=== PATIENT | male | born 1940 | race Caucasian/White ===

== ENCOUNTER 2019-10-11 09:24 | Outpatient (CLI) | payer MEDICARE, OTHER, SELFPAY ==
[2019-10-11 10:33] LABS: Alanine Aminotransferase 26 U/L (4-50); Albumin Level 4.4 g/dL (3.5-5.1); Alkaline Phosphatase 55 U/L (38-126); Aspartate Amino Transferase 36 U/L (17-59); Bilirubin,Total 0.5 mg/dL (0.2-1.3); Blood Urea Nitrogen 18 mg/dL (9-20); Calcium 9.4 mg/dL (8.4-10.2); Carbon Dioxide 32 mmol/L (22-30); Chloride 103 mmol/L (98-107); Cholesterol 121 mg/dL (0-200); Estimated Glomerular Filt Rate > 60; Glucose 91 mg/dL (75-110); HDL Direct 57 mg/dL; Potassium 4.9 mmol/L (3.4-5.0); Sodium 142 mmol/L (137-145); Triglycerides 53 mg/dL (<150)
[2019-10-11 10:45] LABS: LDL Cholesterol Direct 53 mg/dL
== END 2019-10-11 09:25 | disposition home or self-care (01) ==
PROVIDERS: PCP Emergency Medicine; Visit Provider Internal Medicine Cardiovascular Disease
DX: I25.10 Atherosclerotic heart disease of native coronary artery without angina pectoris (principal); E78.00 Pure hypercholesterolemia, unspecified
CPT/HCPCS: 36415; 80053; 80061

== ENCOUNTER 2020-08-21 12:22 | Outpatient (CLI) | payer MEDICARE, OTHER, SELFPAY ==
--- NOTE | ~2020-08-21 | US_ITS ---
EXAMINATION:US venous doppler LE LT INDICATION:History of DVT. TECHNIQUE: Multiple grayscale, color flow and Doppler images of the left lower extremity deep venous systems were obtained and reviewed. COMPARISON:No prior studies for comparison. FINDINGS: The common femoral, superficial femoral and popliteal veins demonstrate normal respiratory variation, augmentation and compressibility. Color flow is also seen within the posterior tibial, pe roneal, greater saphenous and profunda veins. IMPRESSION: 1: No lower extremity deep venous thrombosis. Reviewed, dictated and finalized at location A. EL DRIER OPERATOR
== END 2020-08-21 12:23 | disposition home or self-care (01) ==
PROVIDERS: PCP Emergency Medicine; Visit Provider Emergency Medicine
DX: I82.402 Acute embolism and thrombosis of unspecified deep veins of left lower extremity (principal)
CPT/HCPCS: 93971

== ENCOUNTER 2021-10-29 11:45 | Emergency (ER) | payer MEDICARE, OTHER, SELFPAY ==
[2021-10-29] VITALS (7 sets, daily range): BP systolic 133–173; BP diastolic 70–99; PULSE 62–68; RESP 16–23; TEMP 36.6–37; O2SAT 97–100
--- NOTE | ~2021-10-29 | CT_ITS ---
. EXAMINATION: CTA brain carotid DATE: 10/29/2021 13:13 INDICATION: Dizziness. TECHNIQUE: Computed tomographic angiography (CTA) of the head was performed without and with 100 mL O mnipaque-350 intravenous contrast. CTA of the neck was performed with intravenous contrast. Automated exposure control and iterative reconstruction technique were employed. The dose-length product was 1 906.90 mGy-cm. Maximum intensity projection and volume rendered 3D-reconstructions were created by francisca perez technologist on a separate workstation. COMPARISON: None. FINDINGS: HEAD CTA: There is no intracranial hemorrhage, acute infarction, or abnormal intracranial mass lesion . The ventricles are normal in size. The orbits are normal. There is mild mucosal thickening in the p aranasal sinuses. The mastoid air cells are normal. Right vertebral artery is dominant. There is no s ignificant stenosis of basilar artery or the posterior cerebral arteries. There is no significant berry nosis of intracranial internal carotid arteries or anterior or middle cerebral arteries. Anterior com municating artery is normal. The posterior communicating arteries are normal. There is no aneurysm. NECK CTA: There are no pathologically enlarged lymph nodes. There is a 1.2 cm nodule in left thyroid lobe, likely not clinically significant. 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 There are changes of coronary artery bypass grafting. There is no significant stenosis of the vertebral art eries. There is mild plaque in the proximal internal carotid arteries. There is 0% stenosis of the pr oximal right internal carotid artery relative to normal distal artery lumen diameter (NASCET criteria ). There is 0% stenosis of the proximal left internal carotid artery relative to normal distal artery lumen diameter. There is severe cervical spondylosis. IMPRESSION: 1. Normal brain. No aneurysm or significant intracranial large old stenosis. 2. 0% stenosis of the proximal internal carotid arteries relative to normal distal artery lumen diame ters (NASCET criteria). Reviewed, dictated and finalized at location A. IMPRESSION: 1. Normal brain. No aneurysm or significant intracranial large old stenosis. 2. 0% stenosis of the proximal internal carotid arteries relative to normal dis josselyn artery lumen diameters (NASCET criteria).
--- NOTE | 2021-10-29 11:55 | ECG_ITS ---
Measurements Intervals [place] Rate: 63 P: 64 AK: 135 QRS: -20 QRSD: 90 T: 82 QT: 372 QTc: 382 Interpretive Statements SINUS RHYTHM NONSPECIFIC T-WAVE ABNORMALITY NO PREVIOUS ECG AVAILABLE FOR COMPARISON Electronically Signed On 10-29-2021 14:31:19 CDT by Mc Rosales M.D.
[2021-10-29 12:03] LABS: Glucose Point of Care 92 mg/dl (65-105)
[2021-10-29 12:18] LABS: Basophils Absolute Auto 0.1 K/mm3 (0.0-0.1); Basophils Percent Auto 1.2 % (0.2-1.2); Eosinophils Absolute Auto 0.2 K/mm3 (0-0.3); Eosinophils Percent Auto 2.7 % (0-4.4); Hematocrit 48.2 % (42.0-52.0); Hemoglobin 15.8 g/dL (14.0-18.0); Immature Granulocyte Absolute 0.01 K/mm3 (0.00-0.031); Immature Granulocyte Percent A 0.2 % (0-0.5); Lymphocytes Absolute Auto 0.86 K/mm3 (0.9-3.2); Lymphocytes Percent Auto 14.7 % (18.3-44.2); Mean Corpuscular HGB Conc 32.8 g/dl (32-36); Mean Corpuscular Hemoglobin 30.3 pg (26-34); Mean Corpuscular Volume 92.3 fl (80-100); Mean Platelet Volume 10.3 fl (7.4-10.4); Monocytes Absolute Auto 0.6 K/mm3 (0.1-0.6); Monocytes Percent Auto 10.1 % (2.6-8.5); Neutrophils Absolute Auto 4.2 K/mm3 (1.3-6.7); Neutrophils Percent Auto 71.1 % (45.5-73.1); Platelet Count Result 195 k/mm3 (150-375); Red Blood Count 5.22 M/mm3 (4.6-6.20); Red Cell Distribution Width 12.7 % (11.5-14.5); White Blood Count 5.9 K/mm3 (4.5-10.0)
[2021-10-29 12:30] LABS: Alanine Aminotransferase 24 U/L (4-50); Albumin Level 4.9 g/dL (3.5-5.1); Alkaline Phosphatase 72 U/L (38-126); Anion Gap 8 mmol/L (8-16); Aspartate Amino Transferase 38 U/L (17-59); Blood Urea Nitrogen 22 mg/dL (9-20); Calcium 9.1 mg/dL (8.4-10.2); Carbon Dioxide 26 mmol/L (22-30); Chloride 107 mmol/L (98-107); Estimated CRCL calculation 64 ml/min; Estimated Glomerular Filt Rate > 60; Glucose 88 mg/dL (65-110); Potassium 4.9 mmol/L (3.4-5.0); Sodium 141 mmol/L (137-145)
--- NOTE | 2021-10-29 14:03 | ED.DIZZY ---
HPI - Dizziness General Chief Complaint: Dizziness Stated Complaint: hypertension Time Seen by Provider: 10/29/21 11:56 Source: patient and RN notes reviewed Mode of arrival: ambulatory Limitations: no limitations History of Present Illness HPI Narrative: This is a 81 year old male with history of hyperlipidemia who presents for evaluation of intermittent dizziness. Patient state he has noticed some dizziness over the past 5 days. He reports brief episodes when he stands up initially, and then he is asymptomatic most of the day. He walks long distances daily and he states he is still able to make these walks. He has chronic left leg weakness from a bulging lumbar disc. He states his strength is actually improving in his leg. He denies any other deficits. He denies headache, nausea, vomiting tinnitis, blurred vision or diplopia. He was evaluated by his PCP today and he was referred to ER. Patient reports intermittent left neck pain with movement that has been present for several months. Related Data Home Medications Medication Instructions Recorded Confirmed atorvastatin 40 mg tablet 40 mg PO DAILY 06/20/21 09/17/21 aspirin 81 mg tablet,delayed 81 mg PO DAILY 09/17/21 09/17/21 release cholecalciferol (vitamin D3) 50 50 mcg PO DAILY 09/17/21 09/17/21 mcg (2,000 unit) capsule coenzyme Q10 30 mg capsule 30 mg PO DAILY 09/17/21 09/17/21 omeprazole 20 mg capsule,delayed 20 mg PO DAILY 09/17/21 09/17/21 release Allergies Allergy/AdvReac Type Severity Reaction Status Date / Time metronidazole Allergy Severe GI Verified 09/17/21 13:43 DISTRESS, DEHYRATION azithromycin Allergy Unknown Unknown Verified 09/17/21 13:43 Review of Systems Review of Systems: All systems reviewed & are unremarkable except as noted in HPI and below Constitutional: Constitutional: Denies chills and Denies fever(s) Eyes: Eyes: Denies photophobia ENT: Denies epistaxis and Denies sore throat Cardiovascular: Cardiovascular: Denies chest pain Respiratory: Respiratory: Denies cough and Denies dyspnea Gastrointestinal: Gastrointestinal: Denies abdominal pain, Denies nausea and Denies vomiting Neurologic: Denies headache(s), Denies focal weakness and Denies numbness PMFSH Past Medical History Medical History (Updated 10/29/21 @ 16:03 by Leslie Najera MD) Arthritis GERD (gastroesophageal reflux disease) Heart disease Surgical History Surgical History H/O heart bypass surgery October 2014 H/O prostatectomy Sep 2011 History of cholecystectomy 1992 History of lumbar laminectomy May 2020 Family History Family History Other Family history of congestive heart failure Family history of coronary artery disease Social History Social History Smoking status: Never smoker Alcohol intake: never Additional 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 HEAD: Normocephalic, atraumatic EYES: PERRLA and EOMI, conjunctiva clear without discharge EARS: TM's clear bilaterally without erythema or dullness NOSE: Nares clear, no rhinorrhea or epistaxis THROAT:Mucous membranes moist, Oropharynx normal without erythema, exudate, peritonsillar swelling or fluctuance NECK: Supple, without lymphadenopathy or mass RESPIRATORY: No respiratory distress, Airway patent, Respirations non-labored, Clear to auscultation without rales, rhonchi or wheeze HEART: Regular rate and rhythm. No murmur heard. Normal peripheral pulses. ABDOMEN: Soft, nontender, nondistended, normal active bowel sounds. No masses. No rebound or guarding, No organomegaly. EXTREMITIES: No edema, normal strength with full range
== END 2021-10-29 16:32 | disposition home or self-care (01) ==
PROVIDERS: Emergency Provider General Practice; PCP Internal Medicine
DX: R42 Dizziness and giddiness (principal); R03.0 Elevated blood-pressure reading, without diagnosis of hypertension; I51.9 Heart disease, unspecified; M19.90 Unspecified osteoarthritis, unspecified site; K21.9 Gastro-esophageal reflux disease without esophagitis; Z90.79 Acquired absence of other genital organ(s); Z79.82 Long term (current) use of aspirin; R94.31 Abnormal electrocardiogram [ECG] [EKG]
CPT/HCPCS: 36415; 70496; 70498; 80053; 82948; 85025; 93005; 99284; Q9967

== ENCOUNTER 2022-07-03 08:37 | Outpatient (CLI) | payer MEDICARE, OTHER, SELFPAY ==
[2022-07-03 09:00] LABS: Basophils Absolute Auto 0.1 K/mm3 (0.0-0.1); Basophils Percent Auto 1.3 % (0.2-1.2); Eosinophils Absolute Auto 0.5 K/mm3 (0-0.3); Eosinophils Percent Auto 11.3 % (0-4.4); Hematocrit 46.3 % (42.0-52.0); Immature Granulocyte Absolute 0.01 K/mm3 (0.00-0.031); Immature Granulocyte Percent A 0.2 % (0-0.5); Lymphocytes Absolute Auto 1.12 K/mm3 (0.9-3.2); Lymphocytes Percent Auto 23.5 % (18.3-44.2); Mean Corpuscular HGB Conc 32.4 g/dl (32-36); Mean Corpuscular Volume 92.6 fl (80-100); Mean Platelet Volume 10.3 fl (7.4-10.4); Monocytes Absolute Auto 0.5 K/mm3 (0.1-0.6); Monocytes Percent Auto 10.3 % (2.6-8.5); Neutrophils Absolute Auto 2.5 K/mm3 (1.3-6.7); Neutrophils Percent Auto 53.4 % (45.5-73.1); Platelet Count Result 197 k/mm3 (150-375); Red Cell Distribution Width 13.2 % (11.5-14.5); White Blood Count 4.8 K/mm3 (4.5-10.0)
[2022-07-03 09:11] LABS: Alanine Aminotransferase 23 U/L (6-50); Albumin Level 4.5 g/dL (3.5-5.1); Alkaline Phosphatase 52 U/L (38-126); Anion Gap 7 mmol/L (8-16); Aspartate Amino Transferase 31 U/L (17-59); Bilirubin,Total 0.7 mg/dL (0.2-1.3); Blood Urea Nitrogen 20 mg/dL (9-20); Calcium 9.1 mg/dL (8.4-10.2); Carbon Dioxide 29 mmol/L (22-30); Chloride 106 mmol/L (98-107); Cholesterol 129 mg/dL (0-200); Estimated Glomerular Filt Rate > 60; Glucose 99 mg/dL (65-110); HDL Direct 56 mg/dL; Potassium 4.6 mmol/L (3.4-5.0); Sodium 142 mmol/L (137-145); Triglycerides 49 mg/dL (<150)
[2022-07-03 09:22] LABS: LDL Cholesterol Direct 54 mg/dL
[2022-07-03 09:31] LABS: Vitamin D 25 Hydroxy 53.4 ng/mL
[2022-07-03 09:39] LABS: Prostate Specific Antigen < 0.1 ng/mL (< OR = 4.0)
== END 2022-07-03 08:38 | disposition home or self-care (01) ==
PROVIDERS: PCP Internal Medicine; Visit Provider Internal Medicine
DX: E78.00 Pure hypercholesterolemia, unspecified (principal); E55.9 Vitamin D deficiency, unspecified; I10 Essential (primary) hypertension; Z85.46 Personal history of malignant neoplasm of prostate
CPT/HCPCS: 36415; 80053; 80061; 82306; 84153; 84443; 85025

== ENCOUNTER 2022-10-23 10:10 | Outpatient (CLI) | payer MEDICARE, OTHER, SELFPAY ==
[2022-10-23 11:22] LABS: Basophils Absolute Auto 0.1 K/mm3 (0.0-0.1); Basophils Percent Auto 1.5 % (0.2-1.2); Eosinophils Absolute Auto 0.5 K/mm3 (0-0.3); Eosinophils Percent Auto 10.3 % (0-4.4); Hematocrit 46.4 % (42.0-52.0); Hemoglobin 15.1 g/dL (14.0-18.0); Immature Granulocyte Absolute 0.01 K/mm3 (0.00-0.031); Immature Granulocyte Percent A 0.2 % (0-0.5); Lymphocytes Absolute Auto 1.02 K/mm3 (0.9-3.2); Lymphocytes Percent Auto 21.5 % (18.3-44.2); Mean Corpuscular HGB Conc 32.5 g/dl (32-36); Mean Corpuscular Hemoglobin 29.8 pg (26-34); Mean Corpuscular Volume 91.7 fl (80-100); Mean Platelet Volume 10.4 fl (7.4-10.4); Monocytes Absolute Auto 0.5 K/mm3 (0.1-0.6); Monocytes Percent Auto 11.2 % (2.6-8.5); Neutrophils Absolute Auto 2.6 K/mm3 (1.3-6.7); Neutrophils Percent Auto 55.3 % (45.5-73.1); Platelet Count Result 202 k/mm3 (150-375); Red Blood Count 5.06 M/mm3 (4.6-6.20); Red Cell Distribution Width 12.7 % (11.5-14.5); White Blood Count 4.8 K/mm3 (4.5-10.0)
[2022-10-23 11:34] LABS: Cholesterol 139 mg/dL (0-200); HDL Direct 50 mg/dL; Triglycerides 86 mg/dL (<150)
[2022-10-23 11:46] LABS: LDL Cholesterol Direct 61 mg/dL
[2022-10-23 12:04] LABS: Prostate Specific Antigen < 0.1 ng/mL (< OR = 4.0)
[2022-10-23 12:40] LABS: Vitamin D 25 Hydroxy 52.2 ng/mL
== END 2022-10-23 10:11 | disposition home or self-care (01) ==
LOC: ANHLAB 10:13
PROVIDERS: PCP Internal Medicine; Visit Provider Internal Medicine
DX: R10.9 Unspecified abdominal pain (principal); E78.00 Pure hypercholesterolemia, unspecified; E55.9 Vitamin D deficiency, unspecified; I10 Essential (primary) hypertension; Z85.46 Personal history of malignant neoplasm of prostate
CPT/HCPCS: 36415; 80061; 82306; 84153; 84443; 85025

== ENCOUNTER 2023-04-22 13:20 | Outpatient (CLI) | payer MEDICARE, OTHER, SELFPAY ==
[2023-04-25 11:04] LABS: Immunoglobulin A 207 mg/dL (70-320); TTG IGA AB <1.0 U/mL (<15.0)
== END 2023-04-22 13:21 | disposition home or self-care (01) ==
LOC: ANHLAB 13:23
PROVIDERS: PCP Internal Medicine; Visit Provider Internal Medicine Gastroenterology
DX: R63.4 Abnormal weight loss (principal); Z83.79 Family history of other diseases of the digestive system
CPT/HCPCS: 36415; 82784; 86364

== ENCOUNTER 2023-11-17 10:52 | Outpatient (CLI) | payer MEDICARE, OTHER, SELFPAY ==
--- NOTE | ~2023-11-17 | XR_ITS ---
Clinical Indication: Dyspnea PA and lateral views of the chest: Comparison: None Findings: The lungs are clear, aside from calcified granuloma, without evidence of focal consolidatio n or pleural effusion. Cardiomediastinal silhouette is unremarkable, status post probable CABG. Bone s and soft tissues are unremarkable. Impression: No significant pulmonary abnormality seen. Status post CABG. Reviewed, dictated and finalized at location . Impression: No significant pulmonary abnormality seen. Status post CABG.
== END 2023-11-17 10:53 | disposition home or self-care (01) ==
PROVIDERS: PCP Internal Medicine; Visit Provider Internal Medicine
DX: R06.00 Dyspnea, unspecified (principal); Z95.1 Presence of aortocoronary bypass graft
CPT/HCPCS: 71046

== ENCOUNTER 2024-01-06 00:36 | Day surgery (SDC) | payer MEDICARE, OTHER, SELFPAY ==
[2023-12-22 11:59] VITALS: BMI 22.0
[2024-01-06 09:40] VITALS: BP 148/71; PULSE 67; RESP 20; TEMP 36.1; O2SAT 100; BMI 22.3
[2024-01-06] MEDS: LACTATED RINGERS 1,000 ML 150 ML IV CONT (09:43)
--- NOTE | 2024-01-06 10:37 | SUR.PREOP ---
pt and spouse made aware of delay in schedule due to inpatient procedure. voiced understanding.
--- NOTE | 2024-01-06 11:14 | WPDANESEPPF ---
Anes - Initial Pre Proc Eval Procedure: Operation Date: 01/06/24 11:00 Proposed Procedures p Colonoscopy - Kenn Chu MD Date/Time: 01/06/24 11:14 Surgeon: Kenn Chu MD Pre Op Diagnosis: hx. colon polyps Patient Data Age: 83 Gender: M Height: 1.65 m Weight: 60.8 kg Last Vital Signs Temp 97.0 F L 01/06/24 09:40 Pulse 67 01/06/24 09:40 Resp 20 01/06/24 09:40 BP 148/71 H 01/06/24 09:40 Pulse Ox 100 01/06/24 09:40 O2 Del Method Room Air 01/06/24 09:40 Allergies Allergy/AdvReac Type Severity Reaction Status Date / Time metronidazole Allergy Severe GI Verified 01/06/24 09:38 DISTRESS, DEHYRATION azithromycin Allergy Unknown Unknown Verified 01/06/24 09:38 Home Medications Medication Instructions Recorded Confirmed Type atorvastatin 40 mg tablet 40 mg PO DAILY 06/20/21 01/06/24 History aspirin 81 mg tablet,delayed 81 mg PO DAILY 09/17/21 01/06/24 History release cholecalciferol (vitamin D3) 50 50 mcg PO DAILY 09/17/21 01/06/24 History mcg (2,000 unit) capsule coenzyme Q10 30 mg capsule (Co 30 mg PO DAILY 09/17/21 01/06/24 History Q-10) omeprazole 20 mg capsule,delayed 20 mg PO DAILY #90 caps 04/22/23 01/06/24 Rx release Patient hx anesthesia problems: none Family hx anesthesia problems: none Results Review: All pre-operative results and documents have been reviewed as part of the pre-operative evaluation. [facility] Past Medical History Medical History (Updated 04/22/23 @ 13:18 by Isaias Keen MD) Arthritis GERD (gastroesophageal reflux disease) Heart disease Surgical History Surgical History H/O heart bypass surgery October 2014 H/O prostatectomy Sep 2011 History of cholecystectomy 1992 History of lumbar laminectomy May 2020 Family History Family History Other Family history of congestive heart failure Family history of coronary artery disease Social History Social History Smoking status: Never smoker Alcohol intake: never Substance use: never Substance use type: does not use Living arrangements: with family Occupation/Education: occupation Additional occupation/education comments: 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 Informed Consent: The patient's anesthetic plan and its attendant risks and benefits were discussed with the patient/family/POA. Questions were solicited and answers provided to the satisfaction of the patient/family/POA.
--- NOTE | 2024-01-06 11:39 | PM.HPGS ---
History of Present Illness History of Present Illness Consent: Risks, benefits, and alternatives have been discussed and questions answered. Patient agrees to proceed with procedure. Chief complaint: hx. colon polyps Narrative: Jordan Liao is a 83 year old male with colon polyp 5 years ago Review of Systems Review of Systems: All systems reviewed & are unremarkable except as noted in HPI and below PMFSH Past Medical History Medical History (Updated 04/22/23 @ 13:18 by Isaias Keen MD) Arthritis GERD (gastroesophageal reflux disease) Heart disease Surgical History Surgical History H/O heart bypass surgery October 2014 H/O prostatectomy Sep 2011 History of cholecystectomy 1992 History of lumbar laminectomy May 2020 Family History Family History Other Family history of congestive heart failure Family history of coronary artery disease Social History Social History Smoking status: Never smoker Alcohol intake: never Substance use: never Substance use type: does not use Living arrangements: with family Occupation/Education: occupation Additional occupation/education comments: 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 Gender identity (if verbalized by the patient): Male Spiritual care concerns: No Meds Home Medications and Allergies Home Medications Medication Instructions Recorded Confirmed Type atorvastatin 40 mg tablet 40 mg PO DAILY 06/20/21 01/06/24 History aspirin 81 mg tablet,delayed 81 mg PO DAILY 09/17/21 01/06/24 History release cholecalciferol (vitamin D3) 50 50 mcg PO DAILY 09/17/21 01/06/24 History mcg (2,000 unit) capsule coenzyme Q10 30 mg capsule (Co 30 mg PO DAILY 09/17/21 01/06/24 History Q-10) omeprazole 20 mg capsule,delayed 20 mg PO DAILY #90 caps 04/22/23 01/06/24 Rx release Allergies Allergy/AdvReac Type Severity Reaction Status Date / Time metronidazole Allergy Severe GI Verified 01/06/24 09:38 DISTRESS, DEHYRATION azithromycin Allergy Unknown Unknown Verified 01/06/24 09:38 Vital Signs Vital Signs - 24 hr 01/06/24 09:40 Temperature 97.0 F L Pulse Rate 67 Respiratory Rate 20 Blood Pressure 148/71 H Pulse Oximetry 100 Oxygen Delivery Room Air Exam Const: General: comfortable and no acute distress HENMT: Face/Nose/Sinus: Normal nares present Eyes: General: appearance normal, both eyes and all related structures Neck: Neck: no JVD Resp: Auscultation: clear to auscultation bilaterally Cardio: Rate: regular rate Rhythm: regular rhythm GI: Inspection: non-distended GI Palp: Yes Soft to palpation Skin: General skin exam: normal color Neuro: General: gait normal Speech: normal speech Extrem: General: normal to inspection Psych: Mental Status: mental status grossly normal Assessment and Plan Assessment and plan (1) Personal history of colonic polyps: Code(s): Z86.010 - Personal history of colonic polyps Status: Acute Assessment and Plan: colonoscopy
[2024-01-06 11:55] VITALS: BP 107/51; PULSE 63; RESP 14; O2SAT 100
[2024-01-06 12:05] VITALS: BP 116/59; PULSE 61; RESP 17; O2SAT 98
[2024-01-06 12:15] VITALS: BP 121/58; PULSE 63; RESP 23; O2SAT 99
== END 2024-01-06 12:30 | disposition home or self-care (01) ==
PROVIDERS: PCP Internal Medicine; Visit Provider Internal Medicine Gastroenterology
PROC: 0DJD8ZZ Inspection of Lower Intestinal Tract, Via Natural or Artificial Opening Endoscopic (ICD-10-PCS; CPT 45378; principal; 2024-01-06 11:00)
DX: Z12.11 Encounter for screening for malignant neoplasm of colon (principal); D12.5 Benign neoplasm of sigmoid colon; K57.30 Diverticulosis of large intestine without perforation or abscess without bleeding; K64.8 Other hemorrhoids; Z79.82 Long term (current) use of aspirin; K21.9 Gastro-esophageal reflux disease without esophagitis; I51.9 Heart disease, unspecified; Z95.1 Presence of aortocoronary bypass graft
CPT/HCPCS: 45380; 88305; J2001; J2371; J2704; J7120

== ENCOUNTER 2024-12-03 09:39 | Emergency (ER) | payer MEDICARE, OTHER, SELFPAY ==
--- NOTE | ~2024-12-03 | CT_ITS ---
History: Back pain PROCEDURE: CT lumbar spine without intravenous contrast. COMPARISON: None TECHNIQUE: Multiple contiguous axial images of the lumbar spine were performed without the administration of int ravenous contrast. DLP: 253 mGy-cm FINDINGS: Straightening of the normal lordotic curvature of the lumbar spine is identified, possibly muscular i n origin. No acute compression fractures are present. No soft tissue abnormality is noted. At the level of L1/L2: A left paracentral disc protrusion is identified with trace mass effect affect on the left neural foramen. At the level of L2/L3: A broad-based disc protrusion is identified with mass effect on both the spina l canal and bilateral neural foramen. Hypertrophy of the ligamentum flavum is also noted, contributin g to the degree of spinal stenosis. At the level of L3/L4: A broad-based disc protrusion is identified with mass effect on both the spina l canal and bilateral neural foramen. Sclerosis and joint space narrowing is identified within the bilateral sacroiliac joint spaces, consi stent with degenerative disease. Impression: Straightening of the normal lordotic curvature of the lumbar spine, likely muscular in origin. Degenerative disease, without acute compression fracture. Reviewed, dictated and finalized at location A. Impression: Straightening of the normal lordotic curvature of the lumbar spine, likely musc ular in origin. Degenerative disease, without acute compression fracture.
--- OUTSIDE RECORDS SUMMARY | 2024-12-03 09:43 | XMS_ITS | Clinical Summary ---
Author Organization [facility] [address] Address [address] [place] [address] Care Team Providers Care Bumper Machine Operator Name Role Phone Trevor Quezada MD Primary Care Provider [phone] Allergies Active Allergy Reactions Criticality Noted Date Comments Metronidazole Diarrhea,Other (See comments) Low Dehydration Medications aspirin, buffered (BUFFERIN) 81 mg tablet take 1 by Oral route every day 0 10/19/19 15 Active coenzyme Q10 (CO Q-10) 10 mg capsule take 1 by Oral route once 0 0 12/05/19 16 Active cholecalciferol, vitamin D3, (VITAMIN D3 ORAL) Take 50 mcg by mouth daily Active multivitamin with minerals tablet Take 1 tablet by mouth daily Active omeprazole (PriLOSEC) 40 mg capsule Take 1 capsule (40 mg total) by mouth daily Active rosuvastatin (CRESTOR) 40 mg tabletIndications:Co ronary arteriosclerosis in [place] artery,Hypercholeste rolemia,History of coronary artery bypass surgery Take 1 tablet (40 mg total) by mouth daily 90 tablet 1 11/09/19 25 Active rosuvastatin (CRESTOR) 40 mg tabletIndications:Co ronary arteriosclerosis in [place] artery,Hypercholeste rolemia,History of coronary artery bypass surgery TAKE 1 TABLET(40 MG) BY MOUTH DAILY 90 tablet 1 11/17/19 24 025 Discontin ued(Reord er) Active Problems Problem Noted Date Diagnosed Date Deep vein thrombosis (DVT) during current hospit alization 11/01/2020 History of DVT (deep vein thrombosis) 11/01/2020 Dizziness 11/09/2019 Bradycardia 11/09/2019 Hypercholesterolemia 12/05/2015 Overview (11/20/2016): Hypercholesterolemia Assessment & Plan (04/28/2017 5:02 PM CDT): 04/11/2017: Cholesterol 136, LDL 71, HDL 47, TG 60 Doing well taking atorvastatin 40 mg daily Coronary arteriosclerosis in [place] artery 12/20 Overview (11/21/2016): CAD in [place] artery Assessment & Plan (04/28/2017 5:09 PM CDT): October 2014: 2 vessel CABG, all arterial grafts, with normal LV function. Treadmill stress test today: 11 minutes of the Scott protocol, reached 104% of target heart rate, no angina, no EKG changes Patient doing well with normal left ventricular function no anginal symptoms or inducible ischemia. History of coronary artery bypass surgery 2014 Overview (11/21/2016): Hx of CABG Family history of coronary artery disease 2014 Overview (11/21/2016): Family history of premature CAD Thrombosed external hemorrhoids 01/01/2014 Overview (11/20/2016): EXT THROMBOS HEMORRHOID Resolved Problems Problem Noted Date Diagnosed Date Resolved Date Chest pain 10/18/2014 04/28/2017 Overview (11/21/2016): Chest pain Dyslipidemia 10/18/2014 05/05/2019 Overview (11/21/2016): Dyslipidemia Abnormal cardiovascular stress test 10/18/2014 04/28/2017 Overview (11/21/2016): Abnormal stress test Surgical History Surgery Date Site/Laterality Comments CHOLECYSTECTOMY Cholecystectomy CORONARY ARTERY BYPASS GRAFT 08/18/2014 - 08/17/2015 :2 vessel CABG, FRED to RCA and free radial to OM Medical History Medical History Date Comments Gastroesophageal reflux disease GERD Hx Other Medical Prostate, Stage 1, s/p prostatectomy; Comments: [facility]U 10/18/2014 - Hx Other Medical Hiatal hernia; Comments: [facility] 10/18/2014 - Coronary artery disease Hyperlipidemia Deep vein thrombosis (DVT) d uring current hospitalization (HCC) 2019 LLE after back surgery Family History Medical History Relation Name Comments Other Brother Yousif Myocardial infa rction in his 50's, HTN; Stroke Brother Yousif Suicidality Father Suicide; Heart failure Mother Congestive hea rt failure; Relation Name Status Comments Brother Yousif Father Mother (Age 79) Social History Tobacco Use Types Packs/Day Years Used Date Smoking Tobacco: Never Smokeless Tobacco: Never Tobacco Cessation:Counseling Given: Yes Alcohol Use Standard Drinks/Week Comments Yes 0 (1 standard drink = 0.6 oz pur e alcohol) Personal Safety Answer Date Recorded Getting School Help Needed Not on file 10/10 Sex and Gender Information Value Date Recorded Sex Assigned at Not on file 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 Gender Identity Not on file Sexual Orientation Not on file Obstetrics History Last Filed Vital Signs Vital Sign Reading Time Taken Comments Blood Pressure 122/68 06/07/2024 9:38 AM CDT Pulse 55 06/07/2024 9:38 AM CDT Temperature 36.8 C (98.3 F) 11/09/2019 4:33 PM CDT Respiratory Rate - - Oxygen Saturation 97% 06/07/2024 9:38 AM CDT Inhaled Oxygen Concentration - - Weight 63.7 kg (140 lb 6.4 oz) 06/07/2024 9:38 A M CDT Height 165.1 cm (5' 5 ) 06/07/2024 9:38 AM CDT Body Mass Index 23.36 06/07/2024 9:38 AM CDT Plan of Treatment Health Maintenance Due Date Last Done Comments Depression Screening 1940 Fall Risk Assessment 1940 DTaP/Tdap/Td Vaccine (1 - Tdap) 1953 Hepatitis B Screening 1960 Well Visit 65+ 2007 Zoster Vaccine (2 of 3) 10/30/2015 09/04/2015 Pneumococcal vaccine 65+ (2 of 2 - PPSV23) 09/04/2016 09/04/2015 Influenza Vaccine (Season Ended) 2025 Insurance MEDICARE FOR LIFE MEDICARE FOR LIFE Care Teams Bumper Machine Operator Relationship Specialty Start Date End Date Trevor Quezada MD [address] [facility] [place] [address] PCP - General Internal Medicine 11/01/20
--- OUTSIDE RECORDS SUMMARY | 2024-12-03 09:43 | XMS_ITS | Continuity of Care Document ---
Author Organization [facility] Address [address] [place] [address] Phone Care Team Providers Care Senior Operator Name Role Phone Yousif Herrera MD Unavailable [...] Diagnoses Date Provider Providers Copied on Encounter [facility], [address] [place] [address], [id number], [place] tel:[phone] [facility] No Information 3 Javier Dodd. [address], [place], [id number] , [place]. tel:[phone] Referring Provider: Yousif Herrera, [address] [place] [address] [place], [place], [id number]. tel:[phone] OFFICE/OUTPA TIENT VISIT, [facility], [address], [place], [place], [id number], [place] tel:[phone] [facility] back surgery1 (chief complaint) Lumbago with sciatica, left sideDVT of left legArteriosclerosis of [place] coronary artery without angina pectorisHyperlipide miaAbnormal weight lossEncounter for general adult medical exam w abnormal findings 0 Javier Dodd. [address], [address], [place], [place], [id number] , [place]. [phone] Referring Provider: Juliocesar Pacheco [address], [place], [place], [id number]. tel:[phone] OFFICE/OUTPA TIENT VISIT, [facility], [address], [place], [place], [id number], [place] tel:[phone] [facility] bloating (chief complaint) Chest Pain, UnspecifiedAbdomina l Pain Sep-2 3-201 5 Javier Dodd. [address], [address], [place], [place], [id number] , [place]. [phone] Referring Provider: Juliocesar Pache[address], [place], [place], [id number]. tel:[phone] OFFICE/OUTPA TIENT VISIT, [facility], [address], [place], [place], [id number], [place] tel:[phone] [facility] abdominal pain (chief complaint) HLP (chief complaint) hernia (chief complaint) Other and unspecified hyperlipidemiaAbdom inal PainHernia of unspecified site without mention of obstruction or gangrene 0 2-201 5 Javier Dodd. [address], [address], [place], [place], [id number] , [place]. [phone] Referring Provider: Juliocesar Pache[address], [place], [place], [address]. tel:[phone] OFFICE/OUTPA TIENT VISIT, [facility], [address], [place], [place], [id number], [place] tel:[phone] [facility] abdominal pain (chief complaint) Abdominal PainMalignant Neoplasm, ProstateHEMATURIA NOS Hill 5 Javier Dodd. [address], [address], [place], [place], [id number] , [place]. tel:[phone] Referring Provider: Yousif Herrera, [address], [place], [place], [address]. tel:[phone] OFFICE/OUTPA TIENT VISIT, [facility], [address], [place], [place], [id number], [place] tel:[phone] [facility] sick (chief complaint) leg itching (chief complaint) Dietary surveillance and counselingAcute upper respiratory infections of other multiple sitesUnspecified pruritic disorder 3 Javier Dodd. [address], [address], [place], [place], [id number] , [place]. tel:[phone] Referring Provider: Yousif Herrera, [address], [place], [place], [id number]. tel:[phone] OFFICE/OUTPA TIENT VISIT, [facility], [address], [place], [place], [id number], [place] tel:[phone] [facility] cough (chief complaint) Dietary surveillance and counselingBronchiti s, Acute 3 Javier Dodd. [address], [address], [place], [place], [address] , [place]. tel:[phone] Referring Provider: Yousif Herrera, [address], [place], [place], [id number]. tel:[phone] OFFICE/OUTPA TIENT VISIT, [facility], [address], [place], [place], [id number], [place] tel:[phone] [facility] prostate CA (chief complaint) hematuria (chief complaint) polyruia (chief complaint) Dietary surveillance and counselingHEMATURIA NOSUrinary frequencyMalignant Neoplasm, Prostate 3 Javier Dodd. [address], [facility] [address], [place], [place], [id number] , [place]. tel:[phone] Referring Provider: Yousif Herrera [address], [place], [place], [id number]. tel:[phone] OFFICE/OUTPA TIENT VISIT, EST [facility], [address], [place], [place], [id number], [place] tel:[phone] [facility] Sinus (chief complaint) Dietary surveillance and counselingAcute maxillary sinusitis 3 Javier Dodd. [address], [facility] [address], [place], [place], [id number] , [place]. tel:[phone] Referring Provider: Yousif Herrera [address] [facility] [address], [place], [place], [id number]. tel:[phone] Family History Family Member Type Diagnosis Age At Onset Brother Problem (finding) Hypertension Mother Problem (finding) CHF Brother Problem (finding) Coronary artery disease Payers Payer name Insurance type Covered democrat ID Authoriza tion(s) No Information Social History [...]
--- OUTSIDE RECORDS SUMMARY | 2024-12-03 09:43 | XMS_ITS | Referral Summary ---
Author Organization [facility] [address] Address [address] [place] [address] Care Team Providers Care Pile Driving Technician Name Role Phone Trevor Quezada MD Primary Care Provider [phone] Allergies Active Allergy Reactions Criticality Noted Date [...] (CRESTOR) 40 mg tabletIndications:Co ronary arteriosclerosis in [place] artery,Hypercholeste rolemia,History of coronary artery bypass surgery Take 1 tablet (40 mg total) by mouth daily 90 tablet 1 11/09/19 25 Active rosuvastatin (CRESTOR) 40 mg tabletIndications:Co ronary arteriosclerosis in [place] artery,Hypercholeste rolemia,History of coronary artery bypass surgery [...] atorvastatin 40 mg daily Coronary arteriosclerosis in [place] artery 12/20 Overview (11/21/2016): CAD in [place] artery Assessment & Plan (04/28/2017 5:09 PM [...] 10/18/2014 04/28/2017 Overview (11/21/2016): Abnormal stress test Social History Tobacco Use Types Packs/Day Years [...] on file 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
--- OUTSIDE RECORDS SUMMARY | 2024-12-03 09:43 | XMS_ITS ---
Author Organization [facility] Address [address] [facility] [address] [place] [address] Care Team Providers Care Manager Steel Name Role Phone CLAUDINE JONES Unavailable [phone] REASON FOR VISIT qtc Encounters Encounter Location Date Provider Diagnosis [facility] [address] [facility] [address] [place], [place] [id number] 12/26/2023 CLAUDINE JONES Plan Of Treatment No Information Progress Notes * EVANJordan MILLERDOB: 2 (84 yo M)Acc No.[id number]:12/26/2023 Patient: Jordan MCNAMARA Provider: Saad Jones MD :1940 A ge:83 Y S ex:Male Date:12/26/2023 [facility] [facility] Subjective: * Chief Complaints: * 1 . Qtc. * Medical History: Objective: * Vitals: Assessment: Plan: * Treatment: * * Electronic signature of MAYO JONES MD on 12/03/2024 at 09:42 AM CDT Sign off status: Pending * Provider: Saad Jones MD Date: 12/26/2023 Generated for Otoniel nash/Ben/eTransmitting on: 12/03/2024 09:42 AM CDT
--- OUTSIDE RECORDS SUMMARY | 2024-12-03 09:43 | XMS_ITS ---
Author Name Department of [facility] ([place] Organization [facility] of [facility] [place] Address [address] [place] [address] Care Team Providers Care Educational Assistant Teacher Name Role Phone DINORAH ANDERSON Primary Care Provider Unavail able Insurance Providers: All historical and current Section Date Range: From patient's date of to the date document was created. This section includes the names of all active insurance providers for the patient. Insurance Provider Type of Coverage Plan Name Start of Policy Coverage End of Policy Coverage Group Number Member ID Insurance Provider's Telephone Number Policy Peter's Name Patient's Relationship to Policy Peter MEDICARE (WNR) MEDICARE (M) PART A Jul 18, 2007 PART A [id number] Theodore KELLEY BRADY PATIENT MEDICARE (WNR) MEDICARE (M) PART B Jul 18, 2007 PART B [id number] Theodore KELLEY BRADY PATIENT -FO R-LIFE [place] RE FOR LIFE WNR Aug 18, 2017 FOR LIFE [id number] [phone] Theodore KELLEY BRADY PATIENT Selected Encounter This section includes the information on record at [place] for the Encounter. Date/Time Encounter Type Encounter Description Reason Provider Source Sep 30, 2024 10:30 AM OFFICE O/P EST MOD 30 MIN PRIMARY CARE/MEDICINE ICD-10-CM I25.10 [place] heart disease of [place] coronary artery w/o ang pctPAOLO [place] [facility] Encounter Template Text not used by [place] Assessments - Encounter Diagnoses This section includes the primary and secondary diagnoses documented for the Encounter. Date/Time Primary/Secondary Diagnosis Diagnosis Name Provider Source Sep 30, 2024 11:22 AM PRIMARY Athscl heart disease of [place] coronary artery w/o ang pctrs PAOLO ANDERSON Esdras [facility] Sep 30, 2024 11:22 AM SECONDARY Encounter for immunization PHILL ALEMAN [facility] Sep 30, 2024 11:22 AM SECONDARY Low back pain, unspecified PAOLO ANDERSON Esdras [facility] Sep 30, 2024 11:22 AM SECONDARY Malignant neoplasm of prostate [place] Dewitt [facility] Sep 30, 2024 11:22 AM SECONDARY Post-traumatic stress disorder, [facility] Esdras [facility] Plan of Treatment: Future Appointments (+ 6 months) and Future Tests (+/- 45 days) The Plan of Treatment section includes future care activities for the patient from all [place] [facility]. This section includes future appointments and future orders which are active, pending or scheduled. Future Appointments This section includes appointments that were scheduled to occur 6 months from the date of the Encounter, up to a maximum of 20 appointments. The data comes from all [place] treatment facilities. Appointment Date/Time Appointment Type Appointme nt Facility Name Dec 02, 2024 02:15 PM AMBULATORY - MEDICINE [facility] Vital Signs: All taken on the encounter date This section contains inpatient and outpatient Vital Signs collected on the date of the Encounter. Date/Time Temperature Pulse Blood Pressure Respiratory Rate SP02 Pain Height Weight Body Mass Index Source Sep 30, 2024 10:39 AM 98.2 50 111/62 18 97 0 65 140 23 [facility] Immunizations: All administered on the encounter date This section contains immunizations associated to the Encounter. Immunization Series Date Issued Administered By Site Reaction Lot Number CVX Code Drug Pizza Maker Comment(s) Source ZOSTER RECOMBINANT 1 Sep 30, 2024 PHILL ALEMAN LEFT DELTO ID [id number] LEONILA Jaimes AT [facility] Social History: Smoking Status (Most current) and Tobacco Use (All prior to encounter date) This section includes the most current, and the historical, smoking and tobacco- related health factors from the [place] facility where the Encounter took place. Current Smoking Status This section includes the most current smoking, or tobacco-related health factor, from the [place] facility where the Encounter took place. Date/Time Current Smoking Status Comment Mikael pickard Sep 30, 2024 10:30 AM VA-TOBACCO NEVER U SED CIGARETTES [facility] Tobacco Use History This section includes a history of the smoking, or tobacco-related health factors, that were collected on or before the date of the Encounter. The data comes from the [place] facility where the Encounter took place. Date/Time Smoking Status/Tobacco Use Comment Isaiah acba Sep 30, 2024 10:30 AM [place]-TOBACCO NEVER U SED OTHER TYPE [facility] Encounter Notes: All associated encounter notes This section contains the clinical notes associated to the Encounter. Date/Time Encounter Note(s) Provider Source Sep 30, 2024 11:04 AM PRIMARY CARE NOTE: LOCAL TITLE: PRIMARY CARE PROVIDER ESTABLISHED VISIT [facility] STANDARD TITLE: PRIMARY CARE NOTE DATE OF NOTE: SEP 30, 2024@11:04 ENTRY DATE: SEP 30, 2024@11:04:33 AUTHOR: DINORAH ANDERSON EXP COSIGNER: URGENCY: STATUS: COMPLETED REASON FOR VISIT/CHIEF COMPLAINT: Routine HPI: [place] presents today for routine visit for chronic conditions. CAD: Taking atorvastatin and daily baby ASA. No chest pain or exertional symptoms. Following with non [facility] cardiology yearly. Hx of CABG in 2014. hx of prostate cancer: S/p prostatectomy. Non [facility] PCP trending PSA. Reports that lab has remained undetectable. low back pain: Hx of laminectomy. No LE weaknes, but has residual hypersensitivty. I have learned to deal with it . Remains active and exercises regularly. PTSD: Denies SI/HI. Able to look forward to future events. recently received renal transplant and doing well. Denies need for mental heaolth connection. SOURCE(S) OF HISTORY: Patient PAST MEDICAL HISTORY: 1) Exposure to potentially hazardous substance 2) Exposure to Agent Duncan comment: S/P Prostatectomy 09/[address] Ewing, [id number] 3) Prostate cancer comment: S/P Prostatectomy 09/[address] Ewing, [id number] 4) Low back pain comment: Lumbar laminectomy, 05/19/2020, Dr. Scott [id number] 5) CAD - Coronary Artery Disease ([facility] [id number]) comment: S/P Coronary artery bypass, 10/2014 6) Nocturia ALLERGIES: Patient has answered NKA ALLERGY REVIEW: Allergy list reviewed and remains current. MEDICATIONS: Active and Recently Outpatient Medications (excluding Supplies): Active Non-VA Medications Status 1) Non-VA ASPIRIN 81MG EC TAB 81MG BY MOUTH ONCE A DAY ACTIVE 2) Non-VA ROSUVASTATIN CA 40MG TAB 20MG BY MOUTH EVERY EVENING ACTIVE Indication: FOR HIGH CHOLESTEROL MEDICATION RECONCILIATION: I have reviewed the patient's medication list with the patient and/or his/her care-weekend caregiver. Handwritten corrections, additions and/or deletions were made to the list. Corrected Outpatient Medication List was provided to the patient/caregiver. REVIEW OF SYSTEMS: General: Denies fever or chills, and unexplained weight loss Ears, Nose, Mouth, Throat: Denies hearing loss, nasal drainage or sore throat Endo: Denies heat or cold intolerance, polydipsia, polyuria, or polyphagia Cardiovascular: Denies chest pain, palpitations, or dizziness Respiratory: Denies SOB, cough, sputum, and wheezing ABD/GI: Denies abdominal pain, N/V/D, constipation, heartburn, anorexia, dysphagia, hematochezia, melena, or flatulence Musculoskeletal/Extremities : Denies joint swelling/stiffness/pain, back pain, neck pain and edema /FEDERAL JUDGE: Denies dysuria, flank pain, frequency, hesitancy, urgency, or hematuria Psych: Denies depression, anxiety, insomnia, SI/HI Neuro: Denies weakness, numbness, syncope, dizziness, TELLEZ, tremors, neuropathy Skin: Denies rashes, skin lesions PHYSICAL EXAMINATION: VITALS (most recent, as listed in the electronic record): Temperature: 98.2 F [36.8 C] (09/30/2024 10:39) BP: 111/62 (09/30/2024 10:39) Pulse: 50 (09/30/2024 10:39) Resp: 18 (09/30/2024 10:39) PulsOx: 97% (09/30/2024 10:39) Pain: 0 (09/30/2024 10:39) Weight: Measurement DT WEIGHT LB(KG)[BMI] 09/30/2024 10:39 140(63.50)[23] General: pleasant, well appearing adult male in no apparent distress HEENT: mucus membranes moist, oropharynx clear, TMs normal, PERRL, EOMI Neck: supple, no lymphadenopathy or thyromegaly, no carotid bruits Heart: regular rate and rhythm; no murmurs, rubs, or gallops Lungs: respirations regular and non-labored; CTA BL; no wheezes, rhonchi, or rales Abdomen: soft, nontender, nondistended, bowel sounds normal Extremities: warm, well-perfused; no clubbing, cyanosis, or edema; 2+ PT pulses BL Skin: no rashes or lesions noted; good turgor Neuro: A&O x 3, gait steady and normal-based, CN II-XI intact Psych: appropriate mood and affect DATA REVIEW: No HEMOGLOBIN A1C EO data found Lipid Panel: No LIPID PANEL EO data found CMP: No COMPREHENSIVE METABOLIC PANEL EO data found CBC: No CBC EO data found PSA: No PSA EO data found Result: Acceptable Follow-up Action: labs ordered___ Data results reviewed with patient and/or caregiver. ASSESSMENT/PLAN: CAD: Asymptomatic. Continue statin for secondary prevention and antiplatelet regimen. Non [place] cardiology managing care. hx of prostate cancer: Per , PSA has remained undetectable since surgery. Non [facility] PCP following. low back pain: Remain active. Gentle stretching exercises discussed. PTSD: Stable. Given contact info for 's crisis hotline. HEALTH MAINTENANCE: CRC screen -aged out Lab: Declines ADMINISTERED Immunization Series Date Facility Reaction Info COVID-19 (PFIZER), MRNA, LNP-S, * 2 05/08/2021 [facility] COVID-19 (PFIZER), MRNA, LNP-S, * 1 04/17/2021 [facility] PNEUMOCOCCAL CONJUGATE PCV 13 1 09/04/2015 [facility] ZOSTER LIVE 1 09/04/2015 [facility] ZOSTER LIVE No Site ZOSTER RECOMBINANT 1 09/30/2024 [facility] CONTRAINDICATED No data available REFUSED ======= Immunization Date Facility Info COVID-19 (Candescent SoftBase), MRNA, LNP-S, * 09/30/2024 [facility] <I> COVID-19 (PFIZER), MRNA, LNP-S, * 09/29/2023 [facility] <I> INFLUENZA, UNSPECIFIED FORMULATI* 09/30/2024 [facility] <I> INFLUENZA, UNSPECIFIED FORMULATI* 09/29/2023 [facility] <I> PNEUMOCOCCAL POLYSACCHARIDE PPV23 09/29/2023 [facility] <I> TDAP 09/30/2024 [facility] <I> TDAP 09/29/2023 [facility] <I> <I> See the Detailed Immunizations Health Summary Component[DIM] for Additional Information * Value is truncated; see the Detailed Immunizations Health Summary Component[DIM] for complete text Return to clinic yearly and sooner PRN SUMMARY STATEMENT: Plan of care has been discussed with including expected therapeutic benefits and potential side effects of prescribed medication and treatments. verbalizes understanding and is in agreement with the plan of care. Patient was instructed to keep all scheduled appointments and contact sales training coordinator for any additional problems. Alcohol Use Screen (AUDIT-C) - V: Alcohol Screen: SCREEN FOR ALCOHOL (AUDIT-C) An alcohol screening test (AUDIT-C) was negative (score=0). 1. How often did you have a drink containing alcohol in the past year? Consider a drink to be a 12 ounce can or bottle of regular beer, 8 ounces of malt liquor, a 5 ounce glass of table wine, or a 1.5 ounce shot of liquor (like scotch, gin, or vodka). Never 2. How many drinks containing alcohol did you have on a typical day when you were drinking in the past year? Response not required due to responses to other questions. 3. How often did you have six or more drinks on one occasion in the past year? Response not required due to responses to other questions. Suicide Screen - V: C-SSRS Screening [place]-Suicide Severity Rating Scale (C-SSRS Screener) 1. Over the past month, have you wished you were or wished you could go to sleep and not wake up? No 2. Over the past month, have you had any actual thoughts of killing yourself? No 3. Over the past month, have you been thinking about how you might do this? Response not required due to responses to other questions. 4. Over the past month, have you had these thoughts and had some intention of acting on them? Response not required due to responses to other questions. 5. Over the past month, have you started to work out or worked out the details of how to kill yourself? Response not required due to responses to other questions. 6. If yes, at any time in the past month did you intend to carry out this plan? Response not required due to responses to other questions. 7. In your lifetime, have you ever done anything, started to do anything, or prepared to do anything to end your life (for example, collected pills, obtained a gun, gave away valuables, went to the roof but didn't jump)? No 8. If YES, was this within the past 3 months? Response not required due to responses to other questions. HIV Screening (Routine): Patient has been offered HIV testing and has declined. I have explained that HIV testing is recommended for all adults, even if all risk factors are absent. /tolu/ ANDRAE BRUNSON NURSE PRACTITIONER Signed: 09/30/2024 11:24 DINORAH ANDERSON [facility] Sep 30, 2024 10:41 AM NURSING NOTE: LOCAL TITLE: V15 PACT FACE TO FACE NOTE [facility] STANDARD TITLE: NURSING NOTE DATE OF NOTE: SEP 30, 2024@10:41 ENTRY DATE: SEP 30, 2024@10:41:33 AUTHOR: PHILL ALEMAN EXP COSIGNER: URGENCY: STATUS: COMPLETED Provider Visit: Patient Identifiers : Full Name Date of Reason for visit: Established Follow-Up 84 yr old male. Pt is alert and ambulatory. Pt is able to make his needs known and has no complaints of pain. Pt states his outside provider lowered his statins from 40mg to 20mg. Mode of Arrival: Ambulatory Allergy Review: Patient has answered NKA Allergy list reviewed and remains current. Recent Vital Signs: Temperature: 98.2 F [36.8 C] (09/30/2024 10:39) Pulse: 50 (09/30/2024 10:39) Respiration: 18 (09/30/2024 10:39) B/P: 111/62 (09/30/2024 10:39) Pain: 0 (09/30/2024 10:39) Wt: 140 lb [63.50 kg] (09/30/2024 10:39) Ht: 65 in [165.1 cm] (09/30/2024 10:39) BMI: 23.3 POX: 97% (09/30/2024 10:39) Blood sugar glucometer reading: N/A PERSONAL HEALTH INVENTORY Notes: No data available for PHI note titles PERSONAL HEALTH INVENTORY - MAP: No data available for PHI MAP What matters most to you in your life right now? -- 's Response: my WHOLE HEALTH SHARED GOALS: PERSONAL HEALTH PLAN - SHARED GOALS: No data available for: Php Shared Goals SHARED GOALS maintaining good health Would you like to discuss any personal problem, family problem, alcohol use, drug use, or a mental or emotional illness? No My [facility] ([facility]), please select appointment type: Face to face: Yes-Do you have an upgraded (Premium) account which gives you the added benefit of Secure Messaging with your Primary Care Provider and refilling your prescriptions online? Contact provided Primary Care phone number and encouraged to call if any questions or concerns. Review that after hours nurse line [phone] and emergency room are available 10/03 for patient use. Contact verbalized good understanding. Sexual Orientation - CP,L,N,P,PH,PS,S,U: The patient thinks of their sexual orientation as: Straight or Heterosexual Influenza Immunization - L,N,P,PH,U: Deferral / Refusal The patient declines to receive the recommended dose of seasonal influenza vaccine. Immunization: INFLUENZA, UNSPECIFIED FORMULATION Refusal Reason: PATIENT DECISION Patient refuses all immunization(s) in the FLU group Date Documented: 09/30/24 10:44 Depression Screening - V: Perform PHQ-2 A PHQ-2 screen was performed. The score was 0 which is a negative screen for depression. Over the past two weeks, how often have you been bothered by the following problems? 1. Little interest or pleasure in doing things Not at all 2. Feeling down, depressed, or hopeless Not at all Homelessness/Food Insecurity Screen - DI,L,N,P,PH,PS,S,U: In the past 2 months, have you been living in stable housing that you own, rent, or stay in as part of a household? Yes - Living in stable housing. Are you worried or concerned that in the next 2 months you may NOT have stable housing that you own, rent, or stay in as part of a household? No - Not worried about housing near future The reports the following: Within the past 12 months, you worried whether your food would run out before you got money to buy more. Never true Within the past 12 months, the food you bought just didn't last and you didn't have money to get more. Never true Tobacco Use Screening - AT,DE,L,M,N,P,PH,PS,RT,S,U: The patient has never smoked cigarettes. The patient has never used other types of tobacco. Frail/Elderly Screen: ADL Screen - [place] Index of Cooper in Activities of Daily Living Bathing: (3 Points) Receives no assistance (gets in and out of tub by self, if tub is usual means of bathing) Dressing: (3 Points) Gets clothes and gets completely dressed without assistance. Toileting: (3 Points) Goes to toilet room , cleans self, and arranges clothes without assistance (may use object for support such as cane, walker, or wheelchair, and may manage own night bedpan or commode, emptying same next morning) Transferring: (3 Points) Moves in and out of bed and in and out of chair without assistance (may be using object for support, such as cane or walker) Continence: (3 Points) Controls urination and bowel movement completely by self Feeding: (3 Points) Feeds self without assistance Total Score: 18 Points 18 = High (patient independent) 6 = Low (patient very dependent) IADL Screen - [place] Instrumental Activities of Daily Living Scale Ability to use telephone: (1 point) Operates Telephone on own initiative; looks up and dials numbers. Shopping: (1 point) Takes care of all shopping needs independently. Food preparation: (1 point) Plans, prepares, and serves adequate meals independently. Housekeeping: (1 point) Maintains house alone with occasional assistance (heavy work). Laundry: (1 point) Does personal laundry completely. Mode of transportation: (1 point) Travels independently on public transportation or drives own car. Responsibility for own medications: (1 point) Is responsible for taking medications in correct dosages at correct times. Ability to handle finances: (1 point) Manages financial matters independently (budgets, writes checks, pays rent and bills, goes to bank); collects and keeps track of income. Total score: 8 points 8 = High function, independent 0 = Low function, dependent Falls Screen: No falls within the past 12 months. Incontinence Screen: No incontinence. Tdap Immunization - L,N,P,PH,U: The patient declines to receive the recommended dose of Tdap vaccine. Immunization: TDAP Refusal Reason: PATIENT DECISION Patient refuses all immunization(s) in the TDAP group Date Documented: 09/30/24 10:47 COVID-19 Immunization - L,N,P,PH,U: Refused Pfizer Monovalent COVID-19 vaccine Immunization: COVID-19 (PFIZER), MRNA, LNP-S, PF, RICHARD-SUCROSE, 30 MCG/0.3 ML (AGES 12+ YEARS) Refusal Reason: PATIENT DECISION Patient refuses all immunization(s) in the COVID-19 group Date Documented: 09/30/24 10:48 Herpes Zoster (Shingles) Vaccine - L,N,P,PH,U: Administered: ZOSTER RECOMBINANT Date Administered: Sep 30, 2024 10:30 Series: Series 1 Pizza Maker: [place] EXTENDED STAYS Lot: [id number] Exp Date: Jan 30, 2026 [facility]: [id number] Admin Route/Site: INTRAMUSCULAR/LEFT DELTOID Dosage: 0.5mL Vaccine Information Statement(s): RECOMBINANT ZOSTER VACCINE VIS Sep 21, 2021 ([place]) Order By: Dinorah Anderson Administered By: Phill Aleman Vaccine Information Sheet (VIS) was given to the patient/caregiver, education regarding adverse reactions was discussed, as well as barriers to learning, if any, were acknowledged. /tolu/ PHILL ALEMAN Licensed Practical Nurse Signed: 09/30/2024 10:54 PHILL ALEMAN [facility]
--- OUTSIDE RECORDS SUMMARY | 2024-12-03 09:43 | XMS_ITS | Patient Health Record ---
Author Organization [facility] Address [address] [facility] [address] [place] [address] Care Team Providers Care Transportation Manager Name Role Phone CLAUDINE JONES Unavailable [phone] Reason For Referral No Information Encounters Encounter Location Date Provider Diagnosis [facility] [address] [facility] [address] [place], [place] [id number] 12/26/2023 CLAUDINE JONES Plan Of Treatment No Information
--- OUTSIDE RECORDS SUMMARY | 2024-12-03 09:43 | XMS_ITS | Encounter Summary ---
Author Name [facility] Organization [facility] Address [address] [place] [address] Care Team Providers Care Aluminum Fabrication Supervisor Name Role Phone DINORAH FAIRBANKS Primary Care Provider Unavail able Insurance Providers: [...] PART A Jul 18, 2007 PART A [id number] Theodore KELLEY BRADY PATIENT MEDICARE (WNR) MEDICARE (M) PART B Jul 18, 2007 PART B [id number] Theodore KELLEY BRADY PATIENT -FO R-LIFE TRICA RE FOR LIFE WNR Aug 18, 2017 FOR LIFE [id number] [phone] Theodore KELLEY BRADY PATIENT Selected Encounter This section includes the information on record at [place] for the Encounter. Date/Time Encounter Type Encounter Description Reason Provider Source Dec 02, 2024 02:15 PM OFF/OP EST DECEMBER X REQ PHY/QHP PRIMARY CARE/MEDICINE ICD-10-CM Z23 Encounter for immunization VILMA ALEMAN IHChristiano Encounter Template Text not used by [place] Assessments - Encounter Diagnoses This section includes the primary and secondary diagnoses documented for the Encounter. Date/Time Primary/Secondary Diagnosis Diagnosis Name Provider Source Dec 02, 2024 02:22 PM PRIMARY Encounter for immunization VILMA ALEMAN [facility] Immunizations: All administered on the encounter date This section contains immunizations associated to the Encounter. Immunization Series Date Issued Administered By Site Reaction Lot Number CVX Code Drug Staff Air Defense Officer Comment(s) Source ZOSTER RECOMBINANT 2 Dec 02, 2024 VILMA ALEMAN LEFT DELTO ID [id number] [email or web address] NE [facility]ISTERE [facility] Social History: Smoking Status (Most current) and Tobacco Use (All prior to encounter date) This section includes the most current, and the historical, smoking and tobacco- related health factors from the [place] facility where the Encounter took place. Current Smoking Status This section includes the most current smoking, or tobacco-related health factor, from the [place] facility where the Encounter took place. Date/Time Current Smoking Status Comment Facil ity Sep 30, 2024 10:30 AM CO-TOBACCO NEVER U SED CIGARETTES [facility] Tobacco Use History This section includes a history of the smoking, or tobacco-related health factors, that were collected on or before the date of the Encounter. The data comes from the [place] facility where the Encounter took place. Date/Time Smoking Status/Tobacco Use Comment F acility Sep 30, 2024 10:30 AM CO-TOBACCO NEVER U SED OTHER TYPE [facility] Encounter Notes: All associated encounter notes This section contains the clinical notes associated to the Encounter. Date/Time Encounter Note(s) Provider Source Dec 02, 2024 02:20 PM NURSING NOTE: LOCAL TITLE: V15 PACT FACE TO FACE NOTE ST STANDARD TITLE: NURSING NOTE DATE OF NOTE: DEC 02, 2024@14:20 ENTRY DATE: DEC 02, 2024@14:20:52 AUTHOR: VILMA ALEMAN EXP COSIGNER: URGENCY: STATUS: COMPLETED Nurse Visit: Patient Identifiers : Full Name Date of Reason for visit: 2nd shingles Mode of Arrival: Ambulatory Allergy Review: Patient has answered NKA Allergy list reviewed and remains current. Herpes Zoster (Shingles) Vaccine - L,N,P,PH,U: Administered: ZOSTER RECOMBINANT Date Administered: Dec 02, 2024 14:15 Series: Series 2 Staff Air Defense Officer: Betterific Lot: [id number] Exp Date: Nov 09, 2026 [facility]: [id number] Admin Route/Site: INTRAMUSCULAR/LEFT DELTOID Dosage: 0.5mL Vaccine Information Statement(s): RECOMBINANT ZOSTER VACCINE VIS Sep 21, 2021 (LITHUANIAN) Order By: Dinorah Fairbanks Administered By: Vilma Aleman The Recombinant Zoster Vaccine Information Statement (VIS) was reviewed with the patient/caregiver which lists the benefits and risks of the vaccine and the risks of not receiving the Recombinant Zoster vaccine. The patient/caregiver denied any prior severe reaction to this vaccine or its components or a severe allergic reaction, such as anaphylaxis, to any vaccine or any injectable therapy. The patient/caregiver gave verbal consent to receive the vaccine. /tolu/ VILMA ALEMAN Licensed Practical Nurse Signed: 12/02/2024 14:23 VILMA ALEMAN [facility]
--- OUTSIDE RECORDS SUMMARY | 2024-12-03 09:43 | XMS_ITS | Clinical Summary ---
Author Organization [facility] Address [address] [place] [address] Care Team Providers Care Public Health Aides Teacher Name Role Phone Unavailable Primary Care Provider Unavailabl e Social History Tobacco Use Types Packs/Day Years Used Date Smoking Tobacco: Never Assessed Sex and Gender Information Value Date Recorded Sex Assigned at Not on file Legal Sex Male 8:16 PM CDT Gender Identity Not on file Sexual Orientation Not on file Plan of Treatment Health Maintenance Due Date Last Done Comments DTaP, Tdap and Td Vaccines ( 1 - Tdap) 1961 Pneumococcal Vaccine: 50+ Ye ars (1 of 1 - PCV) 1992 Zoster Vaccines (1 of 2) 1992 RSV Immunization or 60+ Years (1 - 1-dose 75+ series) 2017 COVID-19 Vaccine ( - 2023-2 5 season) 2024 Meningococcal B Vaccine Aged Out No l onger eligible based on patient's age to complete this topic Meningococcal Vaccine Aged Out No raheem pauline eligible based on patient's age to complete this topic RSV Immunizations Under 20 Months Aged Out No longer eligible based on patient's age to complete this topic
--- OUTSIDE RECORDS SUMMARY | 2024-12-03 09:43 | XMS_ITS | Continuity of Care Document ---
Author Name [facility] Organization [facility] Care Team Providers Care Senior Business Analyst Name Role Phone [facility] Unavailable Unavailable Problems Combined list of problems from Department of Defense and Veterans Affairs facilities. It does not include entries that were removed or entered in error. Problem Status Onset Date Problem Type Date of Resolution Comments Source CAD - Coronary Artery Disease ([facility] [id number]) Active Condition Sep 30, 2023 Entered By: RUCHI ROBLEDO Comment: S/P Coronary artery bypass, 10/2014 [facility] Exposure to Agent Morrison Active Condition Sep 30, 2023 Entered By: RUCHI ROBLEDO Comment: S/P Prostatectomy 09/[address] Ewing, [id number] [facility] Exposure to potentially hazardous substance Active Condition [facility] Low back pain Active Condition Sep Entered By: RUCHI ROBLEDO Comment: Lumbar laminectomy, 05/19/2020, Dr. Scott [id number] [facility] Nocturia Active Condition [facility] Prostate cancer Active Condition Sep 30, 2023 Entered By: RUCHI ROBLEDO Comment: S/P Prostatectomy 09/[address] Ewing, [id number] [facility] Diagnosis: ICD-10-CM Z23 Encounter for immunization Active Diagnosis [facility] Diagnosis: ICD-10-CM Z13.5 Encounter for screening for eye and ear disorders Active Diagnosis [facility] Diagnosis: ICD-10-CM I25.10 Athscl heart disease of habematolel coronary artery w/o ang pctrs Active Diagnosis [facility] Diagnosis: ICD-10-CM Z77.29 Contact with and exposure to other hazardous substances Active Diagnosis [facility] Medications Combined list of outpatient medications from Department of Defense and Veterans Affairs facilities.Medications provided include 1) outpatient medications from the last 15 months, and 2) patient-reported medications. Medication Details Route Status Patient Instructions Prescription Expires Prescription Number Last Dispense Date Ordering Provider Order Date Order Qty Source ASPIRIN 81MG TAB,EC TAKE ONE TABLET BY MOUTH ONCE A DAY ORAL ACTIVE DARLENETERDINORAH ADAN 2024 [facility] ROSUVASTATI N CA 40MG TAB TAKE ONE-HALF TABLET BY MOUTH EVERY EVENING ORAL ACTIVE DINORAH SOSA 2024 [facility] Immunizations Combined list of available immunizations from the [facility] and [facility] facilities. Immunization Series Date Given Administered By Site Reaction Lot Number CVX Code Drug Fabric Worker Supervisor Status Comments Source ZOSTER RECOMBINANT 2 2024 PHILL ALEMAN LEFT DELTO ID [id number] complet ed [facility] ZOSTER RECOMBINANT 1 2024 PHILL ALEMAN LEFT DELTO ID [id number] 187 complet ed [facility] COVID-19 ([employer]), MRNA, LNP-S, PF, 30 MCG/0.3 ML DOSE 2 2020 208 complet ed HISTORICA L INFORMATI ON - FROM OTHER [facility] COVID-19 ([employer]), MRNA, LNP-S, PF, 30 MCG/0.3 ML DOSE 1 2020 208 complet ed HISTORICA L INFORMATI ON - FROM OTHER [facility], [facility] PNEUMOCOCCAL CONJUGATE PCV 13 1 2015 133 complet ed HISTORICA L INFORMATI ON - FROM OTHER [facility], [facility] ZOSTER LIVE 1 2015 121 complet ed HISTORICA L INFORMATI ON - FROM OTHER REGISTRY, [facility] ZOSTER LIVE 2015 121 complet ed HISTORICA L INFORMATI ON - FROM PATIENT'S WRITTEN RECORD, [facility] Vital Signs Combined list of inpatient and outpatient Vital Signs from [facility] and [facility], ranging from 12 months to all on record, depending upon the facility. Vital Sign Value Date Comments Source SYSTOLIC BLOOD PRESSURE 111 09/30/2024 10:39:22 [facility] DIASTOLIC BLOOD PRESSURE 62 09/30/2024 10:39:22 [facility] PULSE OXIMETRY 97 09/30/2024 10:39:22 [facility] WEIGHT 140 09/30/2024 10:39:[facility] BMI 23 kg/m2 09/30/2024 10[facility]39:[facility] PAIN 0 09/30/2024 10[facility]39:22 [facility] HEIGHT 65 09/30/2024 10:39:[facility] TEMPERATURE 98.2 09/30/2024 10:39:22 [facility] PULSE 50 09/30/2024 10:39:[facility] RESPIRATION 18 09/30/2024 10:39:22 [facility] Encounters Combined list of: 1) Encounters from Department of Veterans Affairs facilities going backup to the last 18 months, not all [place] inpatient encounters are included; 2) Encounters from the Department of Defense facilities going backup to 280 months. Location Location Details Encounter Type Encounter Number Reason For Visit Attending Provider ADM Date DC Date Status Disposition Source [facility] Outpatient Encounter [id number] BILLIE ALEMAN 09/26 [facility] OFFICE O/P EST HI 40 MIN [id number] Diagnos is: ICD-10- CM Z77.29 Contact with and exposur e to other hazardo us substan kimberly GERALDINE ROBLEDO IDIMMA N 09/29 [facility] Outpatient Encounter [id number] 09/30 [facility] IMG RTA DETCJ/MNTR DS STAFF [id number] Diagnos is: ICD-10- CM Z13.5 Encount er for screeni ng for eye and ear disorde rs SA RONA MACIAS 09/30 [facility] OFFICE O/P EST MOD 30 MIN [id number] Diagnos is: ICD-10- CM I25.10 Athscl heart disease of habematolel coronar y artery w/o ang pctDINORAH Obregon 09/30 [facility] Outpatient Encounter [id number] Diagnos is: ICD-10- CM Z13.5 Encount er for screeni ng for eye and ear disorde Juan Pablo Osuna 09/30 [facility] OFF/OP EST DECEMBER X REQ PHY/QHP [id number] Diagnos is: ICD-10- CM Z23 Encount er for immuniz BILLIE Mead 12/02 [facility] Social History Combined list of available smoking, tobacco, and other social history from Department of Defense and Veterans Affairs facilities. Social History Type Response Date Comment Sourc e Tobacco smoking status ARIS VA-TOBACCO NEVER USED CIGARETTES 09/30/2024 [facility] History of tobacco use VA-TOBACCO NEVER USED OTHER TYPE 09/30/2024 [facility] History of tobacco use VA-TOBACCO NEVER USED 09/26/2023 [facility]
[2024-12-03 10:37] VITALS: BP 158/77; PULSE 71; RESP 18; TEMP 36.6; O2SAT 100
--- OUTSIDE RECORDS SUMMARY | 2024-12-03 11:22 | XMS_ITS | Clinical Summary ---
Author Organization [facility] Address [address] [place] [address] Care Team Providers Care Belt Sander Stone Name Role Phone Unavailable Primary Care Provider [...]
--- OUTSIDE RECORDS SUMMARY | 2024-12-03 11:22 | XMS_ITS | Referral Summary ---
Author Organization [facility] [address] [place] [address] Care Team Providers Care Drilling Contractor Name Role Phone Trevor Quezada MD Primary Care Provider [phone] Allergies Active Allergy Reactions Criticality Noted Date [...] (CRESTOR) 40 mg tabletIndications:Co ronary arteriosclerosis in [place] artery,Hypercholeste rolemia,History of coronary artery bypass surgery Take 1 tablet (40 mg total) by mouth daily 90 tablet 1 11/09/19 25 Active rosuvastatin (CRESTOR) 40 mg tabletIndications:Co ronary arteriosclerosis in [place] artery,Hypercholeste rolemia,History of coronary artery bypass surgery [...] atorvastatin 40 mg daily Coronary arteriosclerosis in [place] artery 12/20 Overview (11/21/2016): CAD in [place] artery Assessment & Plan (04/28/2017 5:09 PM [...] on file Legal Sex Male 8:49 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
--- OUTSIDE RECORDS SUMMARY | 2024-12-03 11:22 | XMS_ITS | Continuity of Care Document ---
Author Organization [facility] Address [address] [place] [address] Phone Care Team Providers Care Electrical & Instrumentation Supervisor Name Role Phone Yousif Herrera MD Unavailable [...] Diagnoses Date Provider Providers Copied on Encounter [facility], [address] [place] [address], [id number], [place] tel:[phone] [facility] No Information 3 Javier Dodd. [address] [place], [place], [id number] , [place]. tel:[phone] Referring Provider: Yousif Herrera, [address] [place] [address] [place], [place], [id number]. tel:[phone] OFFICE/OUTPA TIENT VISIT, [facility], [address], [place], [place], [id number], [place] tel:[phone] [facility] back surgery1 (chief complaint) Lumbago with sciatica, left sideDVT of left legArteriosclerosis of venetie ira coronary artery without angina pectorisHyperlipide miaAbnormal weight lossEncounter for general adult medical exam w abnormal findings 0 Javier Dodd. [address], [address], [place], [place], [id number] , [place]. [phone] Referring Provider: Juliocesar Pacheco [address], [place], [place], [id number]. tel:[phone] OFFICE/OUTPA TIENT VISIT, [facility], [address], [place], [place], [address], [place] tel:[phone] [facility] bloating (chief complaint) Chest Pain, UnspecifiedAbdomina l Pain Sep-2 3-201 5 Javier Dodd. [address], [address], [place], [place], [address] , [place]. [phone] Referring Provider: Juliocesar Pacheco [address], [place], [place], [id number]. tel:[phone] OFFICE/OUTPA TIENT VISIT, [facility], [address], [place], [id number], [place] tel:[phone] [facility] abdominal pain (chief complaint) HLP (chief complaint) hernia (chief complaint) Other and unspecified hyperlipidemiaAbdom inal PainHernia of unspecified site without mention of obstruction or gangrene 0 2-201 5 Javier Dodd. [address], [address], [place], [place], [id number] , [place]. [phone] Referring Provider: Juliocesar Pacheco [address], [place], [id number]. tel:[phone] OFFICE/OUTPA TIENT VISIT, [facility], [address], [place], [address], [place] tel:[phone] [facility] abdominal pain (chief complaint) Abdominal PainMalignant Neoplasm, ProstateHEMATURIA NOS [place] 5 Javier Dodd. [address], [address], [place], [place], [address] , [place]. tel:[phone] Referring Provider: Yousif Herrera, [address], [place], [place], [address]. tel:[phone] OFFICE/OUTPA TIENT VISIT, [facility], [address], [place], [id number], [place] tel:[phone] [facility] sick (chief complaint) leg itching (chief complaint) Dietary surveillance and counselingAcute upper respiratory infections of other multiple sitesUnspecified pruritic disorder 3 Javier Dodd. [address], [address], [place], [place], [address] , [place]. tel:[phone] Referring Provider: Yousif Herrera, [address], [place], [place], [id number]. tel:[phone] OFFICE/OUTPA TIENT VISIT, [facility], [address], [place], [address], [place] tel:[phone] [facility] cough (chief complaint) Dietary surveillance and counselingBronchiti s, Acute 3 Javier Dodd. [address], [address], [place], [place], [id number] , [place]. tel:[phone] Referring Provider: Yousif Herrrea, [address], [place], [place], [address]. tel:[phone] OFFICE/OUTPA TIENT VISIT, [facility], [address], [place], [address], [place] tel:[phone] [facility] prostate CA (chief complaint) hematuria (chief complaint) polyruia (chief complaint) Dietary surveillance and counselingHEMATURIA NOSUrinary frequencyMalignant Neoplasm, Prostate 3 Javier Dodd. [address], [facility] [address], [place], [place], [address] , [place]. tel:[phone] Referring Provider: Yousif Herrera [address], [place], [place], [id number]. tel:[phone] OFFICE/OUTPA TIENT VISIT, EST [facility], [address], [place], [place], [address], [place] tel:[phone] [facility] Sinus (chief complaint) Dietary surveillance and counselingAcute maxillary sinusitis 3 Javier Dodd. [address], [facility] [address], [place], [place], [address] , [place]. tel:[phone] Referring Provider: Yousif Herrera [address] [facility] [address], [place], [place], [address]. tel:[phone] Family History Family Member Type Diagnosis Age [...] now. Instructions Date Instruction Additional Infor bea Dietary counseling Related to Di etary surveillance [...]
--- OUTSIDE RECORDS SUMMARY | 2024-12-03 11:22 | XMS_ITS | Continuity of Care Document ---
Author Name [facility] Organization [facility] Care Team Providers Care Quality Assurance Supervisor Chassis Name Role Phone [facility] Unavailable Unavailable Problems Combined list of problems from Department of Defense and Veterans Affairs facilities. It does not include entries that were removed or entered in error. Problem Status Onset Date Problem Type Date of Resolution Comments Source CAD - Coronary Artery Disease ([facility] [id number]) Active Condition Sep 30, 2023 Entered By: RUCHI ROBLEDO Comment: S/P Coronary artery bypass, 10/2014 [facility] Exposure to Agent [place] Active Condition Sep 30, 2023 Entered By: RUCHI ROBLEDO Comment: S/P Prostatectomy 09/[address] Ewing, [id number] [facility] Exposure to potentially hazardous substance Active Condition [facility] Low back pain Active Condition Sep Entered By: RUCHI ROBLEDO Comment: Lumbar laminectomy, 05/19/2020, Dr. Scott [id number] [facility] Nocturia Active Condition [facility] Prostate cancer Active Condition Sep 30, 2023 Entered By: RUCHI ROBLEDO Comment: S/P Prostatectomy 09/[address] Ewing, [id number] [facility] Diagnosis: ICD-10-CM Z23 Encounter for immunization Active Diagnosis [facility] Diagnosis: ICD-10-CM Z13.5 Encounter for screening for eye and ear disorders Active Diagnosis [facility] Diagnosis: ICD-10-CM I25.10 Athscl heart disease of [place] coronary artery w/o ang pctrs Active Diagnosis [facility] Diagnosis: ICD-10-CM Z77.29 Contact with and exposure to other hazardous substances Active Diagnosis [facility] Medications Combined list of outpatient medications from [...] A DAY ORAL ACTIVE DARLENETERDINORAH ADAN 2024 [facility] ROSUVASTATI N [place] 40MG TAB TAKE ONE-HALF TABLET BY MOUTH EVERY EVENING ORAL ACTIVE DINORAH SOSA 2024 [facility] Immunizations Combined list of available immunizations from the [facility] facilities. Immunization Series Date Given Administered By Site Reaction Lot Number CVX Code Drug Urologist Status Comments Source ZOSTER RECOMBINANT 2 2024 PHILL ALEMAN LEFT DELTO ID [id number] 187 complet ed [facility]MINISTE [facility] AT [facility] ZOSTER RECOMBINANT 1 2024 PHILL ALEMAN LEFT DELTO ID [id number] 187 complet ed ADMINISTE [facility] AT [facility] COVID-19 (Outlisten), MRNA, LNP-S, PF, 30 MCG/0.3 ML DOSE 2 2020 208 complet ed HISTORICA L INFORMATI ON - FROM OTHER [facility] COVID-19 (Outlisten), MRNA, LNP-S, PF, 30 MCG/0.3 ML DOSE 1 2020 208 complet ed HISTORICA L INFORMATI ON - FROM OTHER [facility], [facility] PNEUMOCOCCAL CONJUGATE PCV 13 1 2015 133 complet ed HISTORICA L INFORMATI ON - FROM OTHER [facility], [facility] ZOSTER LIVE 1 2015 121 complet ed HISTORICA L INFORMATI ON - FROM OTHER REGISTRY, [facility] ZOSTER LIVE 2015 121 complet ed HISTORICA L INFORMATI ON - FROM PATIENT'S WRITTEN RECORD, [facility] Vital Signs Combined list of inpatient and outpatient Vital Signs from [facility], ranging from 12 months to all on record, depending upon the facility. Vital Sign Value Date Comments Source SYSTOLIC BLOOD PRESSURE 111 09/30/2024 10:39:22 [facility] DIASTOLIC BLOOD PRESSURE 62 09/30/2024 10:39:22 [facility] PULSE OXIMETRY 97 09/30/2024 10:39:22 S [facility] WEIGHT 140 09/30/2024 10:39:[facility] BMI 23 kg/m2 09/30/2024 10:39:[facility] PAIN 0 09/30/2024 10:39:[facility] HEIGHT 65 09/30/2024 10[facility]39:[facility] TEMPERATURE 98.2 09/30/2024 10:39:22 . [facility] PULSE 50 09/30/2024 10:39:[facility] RESPIRATION 18 09/30/2024 10:39:22 [facility] Encounters Combined list of: 1) Encounters from Department of Veterans Affairs facilities going backup to the last 18 months, not all [place] inpatient encounters are included; 2) Encounters from the Department of Defense facilities going backup to 280 months. Location Location Details Encounter Type Encounter Number Reason For Visit Attending Provider ADM Date DC Date Status Disposition Source [facility] Outpatient Encounter [id number] BILLIE ALEMAN 09/26 [facility] OFFICE O/P EST HI 40 MIN [id number] Diagnos is: ICD-10- CM Z77.29 Contact with and exposur e to other hazardo us substan kimberly GERALDINE ROBLEDO IDIMMA N 09/29 [facility] Outpatient Encounter [id number] 09/30 [facility] IMG RTA DETCJ/MNTR DS STAFF [id number] Diagnos is: ICD-10- CM Z13.5 Encount er for screeni ng for eye and ear disorde rs SA RONA MACIAS 09/30 [facility] OFFICE O/P EST MOD 30 MIN [id number] Diagnos is: ICD-10- CM I25.10 Athscl heart disease of [place] coronar y artery w/o ang pctDINORAH Obregon 09/30 [facility] Outpatient Encounter [id number] Diagnos is: ICD-10- CM Z13.5 Encount er for screeni ng for eye and ear disorde Juan Pablo Osuna 09/30 [facility] OFF/OP EST DECEMBER X REQ PHY/QHP [id number] Diagnos is: ICD-10- CM Z23 Encount er for immuniz BILLIE Mead 12/02 [facility] Social History Combined list of available smoking, tobacco, and other social history from Department of Defense and Veterans Affairs facilities. Social History Type Response Date Comment Sourc e Tobacco smoking status SCIS VA-TOBACCO NEVER USED CIGARETTES 09/30/2024 [facility] History of tobacco use VA-TOBACCO NEVER USED OTHER TYPE 09/30/2024 [facility] History of tobacco use VA-TOBACCO NEVER USED 09/26/2023 [facility]
--- OUTSIDE RECORDS SUMMARY | 2024-12-03 11:22 | XMS_ITS | Clinical Summary ---
Author Organization [facility] [address] Address [address] [place] [address] Care Team Providers Care Db2 Dba Name Role Phone Trevor Quezada MD Primary Care Provider [phone] Allergies Active Allergy Reactions Criticality Noted Date [...] (CRESTOR) 40 mg tabletIndications:Co ronary arteriosclerosis in [place] artery,Hypercholeste rolemia,History of coronary artery bypass surgery Take 1 tablet (40 mg total) by mouth daily 90 tablet 1 11/09/19 25 Active rosuvastatin (CRESTOR) 40 mg tabletIndications:Co ronary arteriosclerosis in [place] artery,Hypercholeste rolemia,History of coronary artery bypass surgery [...] atorvastatin 40 mg daily Coronary arteriosclerosis in [place] artery 12/20 Overview (11/21/2016): CAD in [place] artery Assessment & Plan (04/28/2017 5:09 PM [...] on file Legal 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
--- NOTE | 2024-12-03 13:22 | ED_ITS ---
HPI - Back Pain/Injury General Chief Complaint: Back Pain/Injury Stated Complaint: back pain Time Seen by Provider: 12/03/24 10:53 Source: patient Mode of arrival: ambulatory Limitations: no limitations History of Present Illness HPI Narrative: 84-year-old with a history of hyperlipidemia status post lumbar surgery in 2019 here with the complaints of lower back pain with started few days ago. Patient saw his primary doctor recommended him to take pain medication however he states that he had an adverse reaction to pain medication when he had surgery and he refused to take any. He presently denies any bladder or bowel incontinence. No blood in his urine. Patient states he might have lifted something heavy few days ago and which he can not remember what he did. MD elicited complaint: back pain Pertinent past history: prior back pain Onset (ago): week(s) (1) Timing: constant Quality: aching Location: lumbar spine Radiation: none Exacerbating factors: none Relieving factors: none and immobilization Context: while lifting Associated symptoms: denies other symptoms Related Data Home Medications ?Medication ?Instructions ?Recorded ?Confirmed ?Last Taken ?Type aspirin 81 mg tablet,delayed 81 mg PO DAILY 09/17/21 12/03/24 12/03/24 History release cholecalciferol (vitamin D3) 50 50 mcg PO DAILY 09/17/21 12/03/24 12/03/24 History mcg (2,000 unit) capsule coenzyme Q10 30 mg capsule (Co 30 mg PO DAILY 09/17/21 12/03/24 12/03/24 History Q-10) rosuvastatin 40 mg tablet 20 mg PO DAILY 12/03/24 12/03/24 12/03/24 History Allergies Allergy/AdvReac Type Severity Reaction Status Date / Time metronidazole Allergy Severe GI Verified 12/03/24 10:44 DISTRESS, DEHYRATION azithromycin Allergy Unknown Unknown Verified 12/03/24 10:44 Review of Systems Review of Systems: All systems reviewed & are unremarkable except as noted in HPI and below Constitutional: Constitutional: Reports no additional constitutional complaints Eyes: Eyes: Reports no additional eye complaints ENT: Reports system reviewed and no additional complaints, except as documented Cardiovascular: Cardiovascular: Reports no additional cardiovascular complaints Respiratory: Respiratory: Reports no additional respiratory complaints Gastrointestinal: Gastrointestinal: Reports no additional gastrointestinal complaints Musculoskeletal: Musculoskeletal: Reports as per HPI Neurologic: Reports system reviewed and no additional complaints, except as documented PMF Past Medical History Medical History GERD (gastroesophageal reflux disease) Heart disease Arthritis Surgical History Surgical History History of lumbar laminectomy May 2020 H/O heart bypass surgery October 2014 H/O prostatectomy Sep 2011 History of cholecystectomy 1992 Family History Family History Other Family history of congestive heart failure Family history of coronary artery disease Social History Social History Smoking status: Never smoker Alcohol intake: never Substance use: never Substance use type: does not use Living arrangements: with family Occupation/Education: occupation Additional occupation/education comments: 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 HEAD: Normocephalic, atraumatic. EYES: PERRLA and EOMI. ENT: Nares clear, no rhinorrhea or epistaxis. Mucous membranes moist. NECK: Supple. CHEST: Clear to auscultation. No respiratory distress. HEART: Regular rate and rhythm. No murmur heard. Normal peripheral pulses. ABDOMEN: Soft, nontender, nondistended, normal active bowel sounds. EXTREMITIES: Normal range of motion. No edema. Back no vertebral point tenderness. No obvious rash noted SKIN: Warm, dry, no rash. NEURO: No focal deficits. Alert and oriented x3. PSYCH: Normal mood and affect. Course Course Emergency Course: Patient was notified about his CT findings. Recommended him to take Tylenol ibuprofen for pain, take muscle relaxers as prescribed. Fall precautions advised. Can use his lumbar brace for comfort Vital Signs Vital signs: Vital Signs Temperature 36.6 C 12/03/24 10:37 Pulse Rate 71 12/03/24 10:37 Respiratory Rate 18 12/03/24 10:37 Blood Pressure 158/77 H 12/03/24 10:37 Pulse Oximetry 100 12/03/24 10:37 Oxygen Delivery Room Air 12/03/24 10:37 Temperature 36.6 C 12/03/24 10:37 Pulse Rate 71 12/03/24 10:37 Respiratory Rate 18 12/03/24 10:37 Blood Pressure 158/77 H 12/03/24 10:37 Pulse Oximetry 100 12/03/24 10:37 Oxygen Delivery Room Air 12/03/24 10:37 Discharge Plan Discharge Clinical Impression: Strain of lumbar region Patient Disposition: Home Condition: Stable Instructions: Back Pain (ED) Additional Instructions: Can take Tylenol ibuprofen for pain, take muscle relaxers as needed can use lumbar belt for comfort Patient Language: Slovenian Prescriptions: New cyclobenzaprine 5 mg tablet 5 mg PO TID PRN (Reason: muscle spasm) Qty: 20 0RF No Action aspirin 81 mg tablet,delayed release (DR/EC) 81 mg PO DAILY cholecalciferol (vitamin D3) 50 mcg (2,000 unit) capsule 50 mcg PO DAILY coenzyme Q10 [Co Q-10] 30 mg capsule 30 mg PO DAILY omeprazole 20 mg capsule,delayed release(DR/EC) 20 mg PO DAILY Qty: 90 1RF rosuvastatin 40 mg tablet 20 mg PO DAILY Follow-up/Referrals: Trevor Quezada MD [Primary Care Provider] - Time of Disposition: 13:23
== END 2024-12-03 14:00 | disposition home or self-care (01) ==
PROVIDERS: Emergency Provider Family Medicine; PCP Internal Medicine
DX: S39.012A Strain of muscle, fascia and tendon of lower back, initial encounter (principal); E78.5 Hyperlipidemia, unspecified; I51.9 Heart disease, unspecified; K21.9 Gastro-esophageal reflux disease without esophagitis; M19.90 Unspecified osteoarthritis, unspecified site; Z95.1 Presence of aortocoronary bypass graft; Z90.49 Acquired absence of other specified parts of digestive tract; Z90.79 Acquired absence of other genital organ(s); Z79.82 Long term (current) use of aspirin; Z79.899 Other long term (current) drug therapy; X58.XXXA Exposure to other specified factors, initial encounter
CPT/HCPCS: 72131; 99284

== ENCOUNTER 2025-03-09 12:13 | Outpatient (CLI) | payer MEDICARE, OTHER, SELFPAY ==
--- NOTE | ~2025-03-09 | US_ITS ---
EXAMINATION: US carotid duplex BI DATE: 03/09/2025 13:16 INDICATION: Dizziness TECHNIQUE: Grayscale, color Doppler, and pulsed Doppler images of the cervical carotid arteries were obtained. The degree of vessel stenosis is placed in one of the following categories: normal, <50%, 5 0-69%, >=70% but less than near-occlusion, near-occlusion, or total occlusion. Note that percent sten osis relative to normal distal artery lumen diameter is indirectly measured from velocity measurement s as described by Nasir, et al. Radiology 2003; 229:340-346. Notes: Normal: Peak systolic velocity <125 centimeters/sec and no plaque <50%. Peak systolic velocity <125 ( EDV <40; ICA/CCA PSV ratio <2.0; used these factors only a tandem lesions or low cardiac output or co ntralateral disease) 50-69 %: PSV 125-230 (EDV 40-100; ratio 2-4) >= 70% but less than near occlusion: PSV greater than 230 (EDV > 100; ratio> 4.0) Near Occlusion: PSV that is variable; markedly narrowed lumen Occlusion: Absent flow on color/spectral Doppler and no lumen on estrella scale. COMPARISON: None. FINDINGS: RIGHT: The right common carotid artery (CCA) peak systolic velocity (PSV) is 93 cm/s. The right internal car otid artery (ICA) PSV is 82 cm/s. The right ICA end-diastolic velocity (EDV) is 17 cm/s. The right IC A/CCA PSV ratio is 0.9. The external carotid artery (ECA) PSV is 106 cm/s. There is antegrade flow in the right vertebral artery. LEFT: The left CCA PSV is 76 cm/s. The left ICA PSV is 78 cm/s. The left ICA EDV is 18 cm/s. The left ICA/C CA PSV ratio is 1.0. The ECA PSV is 89 cm/s. There is antegrade flow in the left vertebral artery. IMPRESSION: 1. Less than 50% stenosis in the right internal carotid artery by sonographic criteria. 2. Less than 50% stenosis in the left internal carotid artery by sonographic criteria. Reviewed, dictated and finalized at location A. IMPRESSION: 1. Less than 50% stenosis in the right internal carotid artery by sonographic marcellus das. 2. Less than 50% stenosis in the left internal carotid artery by sonographic chuy hickey.
--- OUTSIDE RECORDS SUMMARY | 2025-03-09 12:17 | XMS_ITS ---
Author Organization [facility] Address [address] [place] [address] Care Team Providers Care Lawnmower Repair Mechanic Name Role Phone CLAUDINE JONES Unavailable [phone] REASON FOR VISIT qtc Encounters Encounter Location Date Provider Diagnosis [facility] [address] [facility] [address] [place], [place] [id number] 12/26/2023 CLAUDINE JONES Plan Of Treatment No Information Progress Notes * EVANTaj MILLERnilaDOB: 2 (84 yo M)Acc No.[id number]:12/26/2023 Patient: Jordan MCNAMARA Provider: Saad Jones MD :1940 A ge:83 Y S ex:Male Date:12/26/2023 [facility] [id number] Subjective: * Chief Complaints: * 1 . Qtc. * Medical History: Objective: * Vitals: Assessment: Plan: * Treatment: * * Electronic signature of MAYO JONES MD on 03/09/2025 at 12:17 PM CDT Sign off status: Pending * Provider: Saad Jones MD Date: 12/26/2023 Generated for Otoniel nash/Ben/eTransmitting on: 03/09/2025 12:17 PM CDT
--- OUTSIDE RECORDS SUMMARY | 2025-03-09 12:17 | XMS_ITS | Clinical Summary ---
Author Organization [facility] Address [address] [place] [address] Care Team Providers Care Annealing Torch Operator Name Role Phone Unavailable Primary Care Provider [...]
--- OUTSIDE RECORDS SUMMARY | 2025-03-09 12:17 | XMS_ITS | Referral Summary ---
Author Organization [facility] [address] Address [address] [place] [address] Care Team Providers Care Electrical Engineering Intern Name Role Phone Trevor Quezada MD Primary Care Provider [phone] Allergies Active Allergy Reactions Criticality Noted Date Comments Metronidazole Diarrhea,Other (See comments) Low Dehydration Medications aspirin, buffered (BUFFERIN) 81 mg tablet take 1 by Oral route every day 0 5 Active coenzyme Q10 (CO Q-10) 10 mg capsule take 1 by Oral route once 0 0 6 Active cholecalciferol, vitamin D3, (VITAMIN D3 ORAL) Take 50 mcg by mouth daily Active multivitamin with minerals tablet Take 1 tablet by mouth daily Active omeprazole (PriLOSEC) 40 mg capsule Take 1 capsule (40 mg total) by mouth daily Active rosuvastatin (CRESTOR) 40 mg tabletIndications:Co ronary arteriosclerosis in [place] artery,Hypercholeste rolemia,History of coronary artery bypass surgery Take 1 tablet (40 mg total) by mouth daily 90 tablet 1 5 Active Active Problems Problem Noted Date Diagnosed Date Deep vein thrombosis (DVT) during current hospit alization 11/01/2020 History of DVT (deep vein thrombosis) 11/01/2020 Dizziness 11/09/2019 Bradycardia 11/09/2019 Hypercholesterolemia 12/05/2015 Overview (11/20/2016): Hypercholesterolemia Assessment & Plan (04/28/2017 5:02 PM CDT): 04/11/2017: Cholesterol 136, LDL 71, HDL 47, TG 60 Doing well taking atorvastatin 40 mg daily Coronary arteriosclerosis in [place] artery 12/20 Overview (11/21/2016): CAD in [place] artery Assessment & Plan (04/28/2017 5:09 PM [...] on file 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 [place] [address] PCP - General Internal Medicine 11/01/20
--- OUTSIDE RECORDS SUMMARY | 2025-03-09 12:17 | XMS_ITS | Continuity of Care Document ---
Author Name [facility] Organization [facility] Care Team Providers Care Rn Documentation Name Role Phone [facility] Unavailable Unavailable Problems Combined list of problems from Department of Defense and Veterans Affairs facilities. It does not include entries that were removed or entered in error. Problem Status Onset Date Problem Type Date of Resolution Comments Source CAD - Coronary Artery Disease ([facility] 19321234) Active Condition Sep 30, 2023 Entered By: KRISSY ROBLEDO Comment: S/P Coronary artery bypass, 10/2014 [facility] Exposure to Agent Barry Active Condition Sep 30, 2023 Entered By: KRISSY ROBLEDO Comment: S/P Prostatectomy 09/[address] Ewing, [id number] [facility] Exposure to potentially hazardous substance Active Condition [facility] Low back pain Active Condition Sep Entered By: KRISSY ROBLEDO Comment: Lumbar laminectomy, 05/19/2020, Dr. Scott [id number] [facility] Nocturia Active Condition [facility] Prostate cancer Active Condition Sep 30, 2023 Entered By: KRISSY ROBLEDO Comment: S/P Prostatectomy 09/[address] Ewing, [id number] [facility] ATOPIC DERMATITIS Inactive Condition To ld pt not dangerous condition. He may use OTC moisturizers. No not vigorously dry after showers. F/u if worse. DoD joint pain, localized in the hip Active Condition History and exam not classic for anything. Ddx includes OA (+FH), trochanteric bursitis (though not ttp on exam), IT band syndrome (though AMAN neg). May just be due to weak core. Will obtain x-ray and utilize course of PT. [facility] Blood Pressure Isolated Elevated Inactive Condition monitor at home Do D CONTACT DERMATITIS Active Condition [age] yom with contact dermatitis. Continue to monitor, use cream as currently rx'd. f/u if worsens, pt education regarding potential allergens. [facility] visit for: issue repeat prescription for medication Inactive Condition DoD ESOPHAGEAL REFLUX Active Condition We ll controlled. Told him of need for surveilance EGD at some point but due to good controll in past may postpone for another 1-2 yrs. Will switch to formulary Nexium. [facility] Lichenification Active Condition DoD Diagnosis: ICD-10-CM Z23 Encounter for immunization Active Diagnosis [facility] Diagnosis: ICD-10-CM Z13.5 Encounter for screening for eye and ear disorders Active Diagnosis [facility] Diagnosis: ICD-10-CM I25.10 Athscl heart disease of redding coronary artery w/o ang pctrs Active Diagnosis [facility] Diagnosis: ICD-10-CM Z77.29 Contact with and exposure to other hazardous substances Active Diagnosis [facility] Medications Combined list of outpatient medications from Department of [facility] and [facility] facilities.Medications provided include 1) outpatient medications from the last 15 months, and 2) patient-reported medications. Medication Details Route Status Patient Instructions Prescription Expires Prescription Number Last Dispense Date Ordering Provider Order Date Order Qty Source ASPIRIN 81MG TAB,EC TAKE ONE TABLET BY MOUTH ONCE A DAY ORAL ACTIVE DINORAH SOSA 2024 [facility] OMEPRAZOLE (omeprazole ), 20 MG, CAPSULE ALIVIA WELCH, Cooliris, 1000 ea. BOTTLE Active [id number] 2023 30 Pharmac y Data Transac tion Service Facilit y ROSUVASTATI N CA 40MG TAB TAKE ONE-HALF TABLET BY MOUTH EVERY EVENING ORAL ACTIVE HESDINORAH GRIGSBY 2024 [facility] Allergies, Adverse Reactions, Alerts Combined list of allergies from Department of Defense and Veterans Affairs facilities. It does not include entries that were removed or entered in error. Substance Category Reaction Severity Reaction type Status Date Reported Comments Source NO OUTPUT FOR NCID [id number] Drug allergy (disorder) active 12/23/2007 [facility] Chris GARCIA ([facility]) Immunizations Combined list of available immunizations from the Department of Defense and Veterans Affairs facilities. Immunization Series Date Given Administered By Site Reaction Lot Number CVX Code Drug Glove Printer Status Comments Source ZOSTER RECOMBINANT 2 2024 PHILL ALEMAN LEFT DELTO ID [id number] 187 complet ed ADMINISTE RED AT [facility] ZOSTER RECOMBINANT 1 2024 PHILL ALEMAN LEFT DELTO ID [id number] 187 complet ed ADMINISTE RED AT [facility] COVID-19 (PFIZER), MRNA, LNP-S, PF, 30 MCG/0.3 ML DOSE 2 2020 208 complet ed HISTORICA L INFORMATI ON - FROM OTHER [facility], [facility] N COVID-19, mRNA, LNP-S, PF, 30 mcg/0.3 mL dose 2020 [employer] [place] (PFR) Not Given COVID-19, mRNA, LNP-S, PF, 30 mcg/0.3 mL dose DoD COVID-19 (PFIZER), MRNA, LNP-S, PF, 30 MCG/0.3 ML DOSE 1 2020 208 complet ed HISTORICA L INFORMATI ON - FROM OTHER REGISTRY, [facility] N COVID-19, mRNA, LNP-S, PF, 30 mcg/0.3 mL dose 2020 [employer] [place] ([place]FR) Not Given COVID-19, mRNA, LNP-S, PF, 30 mcg/0.3 mL dose DoD PNEUMOCOCCAL CONJUGATE PCV 13 1 2015 133 complet ed HISTORICA L INFORMATI ON - FROM OTHER REGISTRY, [facility] N ZOSTER LIVE 1 2015 121 complet ed HISTORICA L INFORMATI ON - FROM OTHER REGISTRY, [facility] ZOSTER LIVE 2015 121 complet ed HISTORICA L INFORMATI ON - FROM PATIENT'S WRITTEN RECORD, [facility] Vital Signs Combined list of inpatient and outpatient Vital Signs from Department of Defense and Veterans Affairs, ranging from 12 months to all on record, depending upon the facility. Vital Sign Value Date Comments Source SYSTOLIC BLOOD PRESSURE 111 09/30/2024 10:39:22 [facility] DIASTOLIC BLOOD PRESSURE 62 09/30/2024 10:39:22 [facility] PULSE OXIMETRY 97 09/30/2024 10:39:22 S Ed[facility] WEIGHT 140 09/30/2024 10:39:22 [facility] BMI 23 kg/m2 09/30/2024 10:39:22 [facility] PAIN 0 09/30/2024 10:39:22 [facility] HEIGHT 65 09/30/2024 10:39:22 [facility] TEMPERATURE 98.2 09/30/2024 10:39:22 [facility] PULSE 50 09/30/2024 10:39:22 [facility] RESPIRATION 18 09/30/2024 10:39:22 [facility] Encounters Combined list of: 1) Encounters from Department of Veterans Affairs facilities going backup to the last 18 months, not all VA inpatient encounters are included; 2) Encounters from the Department of [facility] facilities going backup to 280 months. Location Location Details Encounter Type Encounter Number Reason For Visit Attending Provider ADM Date DC Date Status Disposition Source [address] [place] [address] Chris GARCIA ([facility])(Sco tt [facility] Fam Res Tm Green) OUTPATIENT [id number] fungus on chest CARLOSTHAO NICOLAS S 12/12 Released w/o Limitations [address] [place] [address] Chris GARCIA ([facility])(S [facility] F[facility] [place] [place]) [address] [place] [address] Chris GARCIA [facility]Sco tt [facility] FAMRES Tm Blue) OUTPATIENT [id number] stomach problem s SABINE SPRING 02/12 Released w/o Limitations [address] [place] [address] Chris GARCIA ([facility] FAM[facility] Tm Blue) [address] [place] [address] Chris GARCIA [facility]Sco tt [facility] FAMRES Tm Blue) OUTPATIENT [id number] fu infecti on on right arm shots and pills KAREN BRITO 12/23 Released w/o Limitations [address] [place] [address] Chris GARCIA ([facility] Tm Blue) [address] [place] [address] Chris GARCIA [facility]Sco tt [facility] Fam Res Tm Green) TELE CONSULT [id number] Med refill KAREN BRITO 02/[address] [place] [address] Chris GARCIA ([facility] [place] [place]) [address] [place] [address] Chris GARCIA ([facility])(Sco tt [facility] Fam Res Tm Green) OUTPATIENT [id number] rip hip pain/re fill meds [phone] ANA WATKINS 05/11 Released w/o Limitations [address] [place] [address] Chris GARCIA ([facility] F[facility] [place]m [place]) [facility] Outpatient Encounter [id number] ALEMANBILLIE Almeida 09/26 [facility] OFFICE O/P EST HI 40 MIN [id number] Diagnos is: ICD-10- CM Z77.29 Contact with and exposur e to other hazardo us substan kimberly GERALDINE ROBLEDO IDIMMA N 09/29 [facility] Outpatient Encounter [id number] 09/30 [facility] IMG RTA DETCJ/MNTR DS STAFF [id number] Diagnos is: ICD-10- CM Z13.5 Encount er for screeni ng for eye and ear disorde SA RONA Mitchell 09/30 [facility] OFFICE O/P EST MOD 30 MIN [id number] Diagnos is: ICD-10- CM I25.10 Athscl heart disease of redding coronar y artery w/o ang DINORAH Goldsmith 09/30 [facility] Outpatient Encounter [id number] Diagnos is: ICD-10- CM Z13.5 Encount er for screeni ng for eye and ear disorde rs BENIGNOVETTA,M RINA DMITRY 09/30 [facility] OFF/OP EST DECEMBER X REQ PHY/QHP [id number] Diagnos is: ICD-10- CM Z23 Encount er for immuniz BILLIE Mead LIBIA Almeida 12/02 [facility] Social History Combined list of available smoking, tobacco, and other social history from Department of Defense and Veterans Affairs facilities. Social History Type Response Date Comment [facility] e Tobacco smoking status AKIS [place]-TOBACCO NEVER USED CIGARETTES 09/30/2024 [facility] History of tobacco use W[place]-TOBACCO NEVER USED OTHER TYPE 09/30/2024 [facility] History of tobacco use [place]-TOBACCO NEVER USED 09/26/2023 [facility] This section is an empty social history section. DoD
--- OUTSIDE RECORDS SUMMARY | 2025-03-09 12:17 | XMS_ITS | Clinical Summary ---
Author Organization [facility] [address] Address [address] [place] [address] Care Team Providers Care Esthetician Makeup Artist Name Role Phone Trevor Quezada MD Primary Care Provider [phone] Allergies Active Allergy Reactions Criticality Noted Date [...] (CRESTOR) 40 mg tabletIndications:Co ronary arteriosclerosis in [place] artery,Hypercholeste rolemia,History of coronary artery bypass surgery [...] atorvastatin 40 mg daily Coronary arteriosclerosis in [place] artery 12/20 Overview (11/21/2016): CAD in [place] artery Assessment & Plan (04/28/2017 5:09 PM [...] on file 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
--- OUTSIDE RECORDS SUMMARY | 2025-03-09 12:17 | XMS_ITS | Patient Health Record ---
Author Organization [facility] Address [address] [facility] [address] [address] Reason For Referral No Information Plan Of Treatment No Information
== END 2025-03-09 12:14 | disposition home or self-care (01) ==
PROVIDERS: PCP Internal Medicine; Visit Provider Internal Medicine
DX: R42 Dizziness and giddiness (principal)
CPT/HCPCS: 93880

== ENCOUNTER 2025-03-14 06:59 | Outpatient (CLI) | payer MEDICARE, OTHER, SELFPAY ==
--- NOTE | ~2025-03-14 | XR_ITS ---
XR cervical spine 4-5V 03/14/2025 07:27 Indication: Cervicalgia Procedure: 5 views cervical spine Comparison: 04/27/2018 Findings: No fracture, subluxation or dislocation. There is degenerative anterolisthesis at C2-3, C3- 4 and C4-5 with retrolisthesis at C5-6. There is disc narrowing at C5-6 and C6-7. There is degenerati ve anterolisthesis at C7-T1 secondary to facet hypertrophy. There is multilevel uncinate and facet hy pertrophy. Lung apices are normal. Impression: 1: Severe cervical spondylosis. Reviewed, dictated and finalized at location A. Impression: 1: Severe cervical spondylosis.
--- OUTSIDE RECORDS SUMMARY | 2025-03-14 07:10 | XMS_ITS | Patient Health Record ---
Author Organization [facility] Address [address] [facility] [address] [address] Reason For Referral No Information Plan Of Treatment No Information
--- OUTSIDE RECORDS SUMMARY | 2025-03-14 07:10 | XMS_ITS | Clinical Summary ---
Author Organization [facility] Address [address] [place] [address] Care Team Providers Care Track Grinder Operator Name Role Phone Unavailable Primary Care [...]
--- OUTSIDE RECORDS SUMMARY | 2025-03-14 07:10 | XMS_ITS ---
Author Organization [facility] Address [address] [facility] [address] [place] [address] Care Team Providers Care Railroad Emergency Services Manager Name Role Phone CLAUDINE JONES Unavailable [phone] REASON FOR VISIT qtc Encounters Encounter Location Date Provider Diagnosis [facility] [address] [facility] [address] [place], [place] [id number] 12/26/2023 CLAUDINE JONES Plan Of Treatment No Information Progress Notes * EVANTaj MILLERnilaDOB: 2 (84 yo M)Acc No.[id number]:12/26/2023 Patient: Jordan MCNAMARA Provider: Saad Jones MD :1940 A ge:83 Y S ex:Male Date:12/26/2023 [facility] [facility] Subjective: * Chief Complaints: * 1 . Qtc. * Medical History: Objective: * Vitals: Assessment: Plan: * Treatment: * * Electronic signature of MAYO JONES MD on 03/14/2025 at 07:10 AM CDT Sign off status: Pending * Provider: Saad Jones MD Date: 12/26/2023 Generated for Otoniel nash/Ben/eTransmitting on: 03/14/2025 07:10 AM CDT
--- OUTSIDE RECORDS SUMMARY | 2025-03-14 07:11 | XMS_ITS | Continuity of Care Document ---
Author Organization [facility] Address [address] [place] [address] Phone Care Team Providers Care Billing Specialist Name Role Phone Yousif Herrera MD Unavailable [...] Diagnoses Date Provider Providers Copied on Encounter [facility], [address] [place] [address], [id number], [place] tel:[phone] [facility] No Information 3 Javier Dodd. [address] [place], [place], [address] , [place]. tel:[phone] Referring Provider: Yousif Herrera, [address] [place] [address] [place], [place], [id number]. tel:[phone] OFFICE/OUTPA TIENT VISIT, [facility], [address], [place], [place], [address], [place] tel:[phone] [facility] back surgery1 (chief complaint) Lumbago with sciatica, left sideDVT of left legArteriosclerosis of [place] coronary artery without angina pectorisHyperlipide miaAbnormal weight lossEncounter for general adult medical exam w abnormal findings 0 Javier Dodd. [address], [address], [place], [place], [address] , [place]. [phone] Referring Provider: Juliocesar Pacheco [address], [place], [place], [address]. tel:[phone] OFFICE/OUTPA TIENT VISIT, [facility], [address], [place], [place], [address], [place] tel:[phone] [facility] bloating (chief complaint) Chest Pain, UnspecifiedAbdomina l Pain Sep-2 3-201 5 Javier Dodd. [address], [address], [place], [place], [address] , [place]. [phone] Referring Provider: Juliocesar Pacheco [address], [place], [place], [address]. tel:[phone] OFFICE/OUTPA TIENT VISIT, [facility], [address], [place], [place], [address], [place] tel:[phone] [facility] abdominal pain (chief complaint) HLP (chief complaint) hernia (chief complaint) Other and unspecified hyperlipidemiaAbdom inal PainHernia of unspecified site without mention of obstruction or gangrene 0 2-201 5 Javier Dodd. [address], [address], [place], [place], [address] , [place]. [phone] Referring Provider: Juliocesar P[address], [place], [place], [address]. tel:[phone] OFFICE/OUTPA TIENT VISIT, [facility], [address], [place], [place], [address], [place] tel:[phone] [facility] abdominal pain (chief complaint) Abdominal PainMalignant Neoplasm, ProstateHEMATURIA NOS Hill 5 Javier Dodd. [address], [address], [place], [place], [address] , [place]. tel:[phone] Referring Provider: Yousif Herrera, [address], [place], [place], [address]. tel:[phone] OFFICE/OUTPA TIENT VISIT, [facility], [address], [place], [place], [address], [place] tel:[phone] [facility] sick (chief complaint) leg itching (chief complaint) Dietary surveillance and counselingAcute upper respiratory infections of other multiple sitesUnspecified pruritic disorder 3 Javier [address]odd. [address], [address], [place], [place], [address] , [place]. tel:[phone] Referring Provider: Yousif Herrera, [address], [place], [place], [address]. tel:[phone] OFFICE/OUTPA TIENT VISIT, [facility], [address], [place], [place], [address], [place] tel:[phone] [facility] cough (chief complaint) Dietary surveillance and counselingBronchiti s, Acute 3 Javier Dodd. [address], [address], [place], [place], [address] , [place]. tel:[phone] Referring Provider: Yousif Herrera, [address], [place], [place], [address]. tel:[phone] OFFICE/OUTPA TIENT VISIT, [facility], [address], [place], [place], [address], [place] tel:[phone] [facility] prostate CA (chief complaint) hematuria (chief complaint) polyruia (chief complaint) Dietary surveillance and counselingHEMATURIA NOSUrinary frequencyMalignant Neoplasm, Prostate 3 Javier Dodd. [address], [facility] A, [place], [place], [address] , [place]. tel:[phone] Referring Provider: Yousif Herrera [address], [place], [place], [address]. tel:[phone] OFFICE/OUTPA TIENT VISIT, EST [facility], [address], [place], [place], [address], [place] tel:[phone] [facility] Sinus (chief complaint) Dietary surveillance and counselingAcute maxillary sinusitis 3 Javier [address]odd. [address], [facility] A, [place], [place], [address] , [place]. tel:[phone] Referring Provider: Yousif Herrera Juliocesar [facility] A, [place], [place], [address]. tel:[phone] Family History Family Member Type Diagnosis Age [...]
--- OUTSIDE RECORDS SUMMARY | 2025-03-14 07:11 | XMS_ITS | Continuity of Care Document ---
Author Name [facility] Organization [facility] Care Team Providers Care Epoxy Coatings Installer Name Role Phone [facility] Unavailable Unavailable Problems Combined list of problems from Department of Defense and Veterans Affairs facilities. It does not include entries that were removed or entered in error. Problem Status Onset Date Problem Type Date of Resolution Comments Source CAD - Coronary Artery Disease ([facility] [id number]) Active Condition Sep 30, 2023 Entered By: KRISSY ROBLEDO Comment: S/P Coronary artery bypass, 10/2014 [facility] Exposure to Agent [place] Active Condition Sep 30, 2023 Entered By: KRISSY ROBLEDO Comment: S/P Prostatectomy 09/[address] Ewing, [id number] [facility] Exposure to potentially hazardous substance Active Condition [facility] Low back pain Active Condition Sep Entered By: KRISSY ROBLEDO Comment: Lumbar laminectomy, 05/19/2020, Dr. Scott [id number] [facility] Nocturia Active Condition [facility] Prostate cancer Active Condition Sep 30, 2023 Entered By: KRISSY ROBLEDO Comment: S/P Prostatectomy 09/[address] Ewing, [id number] [facility] ATOPIC DERMATITIS Inactive Condition To ld [...] obtain x-ray and utilize course of PT. [facility] Blood Pressure Isolated Elevated Inactive Condition monitor at home Do D CONTACT DERMATITIS Active Condition [age] yom with contact dermatitis. Continue to monitor, use cream as currently rx'd. f/u if worsens, pt education regarding potential allergens. [facility] visit for: issue repeat prescription for medication Inactive Condition DoD ESOPHAGEAL REFLUX Active Condition We ll controlled. Told him of need for surveilance EGD at some point but due to good controll in past may postpone for another 1-2 yrs. Will switch to formulary Nexium. [facility] Lichenification Active Condition DoD Diagnosis: ICD-10-CM Z23 Encounter for immunization Active Diagnosis [facility] Diagnosis: ICD-10-CM Z13.5 Encounter for screening for eye and ear disorders Active Diagnosis [place] [facility] [place] [facility] Diagnosis: ICD-10-CM I25.10 Athscl heart disease of platinum coronary artery w/o ang pctrs Active Diagnosis [facility] Diagnosis: ICD-10-CM Z77.29 Contact with and exposure to other hazardous substances Active Diagnosis [facility] Medications Combined list of outpatient medications from Department of [facility] and [facility] facilities.Medications provided include 1) outpatient medications from the last 15 months, and 2) patient-reported medications. Medication Details Route Status Patient Instructions Prescription Expires Prescription Number Last Dispense Date Ordering Provider Order Date Order Qty Source ASPIRIN 81MG TAB,EC TAKE ONE TABLET BY MOUTH ONCE A DAY ORAL ACTIVE DINORAH SOSA 2024 [facility] OMEPRAZOLE (omeprazole ), 20 MG, CAPSULE ALIVIA WELCH, [employer], 1000 ea. BOTTLE Active [id number] 2023 30 Pharmac y Data Transac tion Service Facilit y ROSUVASTATI N [place] 40MG TAB TAKE ONE-HALF TABLET BY MOUTH EVERY EVENING ORAL ACTIVE HESDINORAH GRIGSBY 2024 [facility] Allergies, Adverse Reactions, Alerts Combined list of allergies from Department of Defense and Veterans Affairs facilities. It does not include entries that were removed or entered in error. Substance Category Reaction Severity Reaction type Status Date Reported Comments Source NO OUTPUT FOR NCID [id number] Drug allergy (disorder) active 12/23/2007 [employer] Chris GARCIA ([facility]) Immunizations Combined list of available immunizations from the Department of Defense and Veterans Affairs facilities. Immunization Series Date Given Administered By Site Reaction Lot Number CVX Code Drug Bar Gauger And Lubricator Tender Status Comments Source ZOSTER RECOMBINANT 2 2024 PHILL ALEMAN LEFT DELTO ID [id number] 187 complet ed [facility] ZOSTER RECOMBINANT 1 2024 PHILL ALEMAN LEFT DELTO ID [id number] 187 complet ed [facility] COVID-19 (PFIZER), MRNA, LNP-S, PF, 30 MCG/0.3 ML DOSE 2 2020 208 complet ed HISTORICA L INFORMATI ON - FROM OTHER [facility], [facility] N COVID-19, mRNA, LNP-S, PF, 30 mcg/0.3 mL dose 2020 [employer] [place] (PFR) Not Given COVID-19, mRNA, LNP-S, PF, 30 mcg/0.3 mL dose DoD COVID-19 (PFIZER), MRNA, LNP-S, PF, 30 MCG/0.3 ML DOSE 1 2020 208 complet ed HISTORICA L INFORMATI ON - FROM OTHER REGISTRY, [facility] N COVID-19, mRNA, LNP-S, PF, 30 mcg/0.3 mL dose 2020 [employer] [place] (PFR) Not Given COVID-19, mRNA, LNP-S, PF, 30 mcg/0.3 mL dose DoD PNEUMOCOCCAL CONJUGATE PCV 13 1 2015 133 complet ed HISTORICA L INFORMATI ON - FROM OTHER REGISTRY, [facility] N ZOSTER LIVE 1 2015 121 complet ed HISTORICA L INFORMATI ON - FROM OTHER REGISTRY, [facility] ZOSTER LIVE 2015 121 complet ed HISTORICA L INFORMATI ON - FROM PATIENT'S WRITTEN RECORD, [facility] Vital Signs Combined list of inpatient and outpatient Vital Signs from Department of Defense and Veterans Affairs, ranging from 12 months to all on record, depending upon the facility. Vital Sign Value Date Comments Source SYSTOLIC BLOOD PRESSURE 111 09/30/2024 [facility]39[facility] DIASTOLIC BLOOD PRESSURE 62 09/30/2024 [facility]:39[facility] PULSE OXIMETRY 97 09/30/2024 10:39:22 [facility] WEIGHT 140 09/30/2024 10:39:[facility] BMI 23 kg/m2 09/30/2024 10:39:[facility] PAIN 0 09/30/2024 10:39:[facility] HEIGHT 65 09/30/2024 10:39:[facility] TEMPERATURE 98.2 09/30/2024 10:39:[facility] PULSE 50 09/30/2024 10:39:[facility] RESPIRATION 18 09/30/2024 10:39:[facility] Encounters Combined list of: 1) Encounters from Department of Veterans Affairs facilities going backup to the last 18 months, not all VA inpatient encounters are included; 2) Encounters from the Department of [facility] facilities going backup to 280 months. Location Location Details Encounter Type Encounter Number Reason For Visit Attending Provider ADM Date DC Date Status Disposition Source [address] [place] [address] Chris GARCIA ([facility])([facility]co [facility] [place] OUTPATIENT [id number] fungus on chest CARLOSTHAO NICOLAS S 12/12 Released w/o Limitations [address] [place] [address] Chris GARCIA ([facility])([facility]) [address] [place] [address] Chris [facility]ARCIA [facility]) OUTPATIENT [id number] stomach problem s SABINE SPRING 02/12 Released w/o Limitations [address] [place] [address] Chris GARCIA ([facility]) [address] [place] [address] Chris [facility]ARCIA [facility] [place]) OUTPATIENT [id number] fu infecti on on right arm shots and pills KAREN BRITO 12/23 Released w/o Limitations [address] [place] [address] Chris GARCIA ([facility]) [address] [place] [address] Chris GARCIA [facility] [facility] [place] TELE CONSULT [id number] Med refill KAREN BRITO 02/[address] [place] [address] Chris GARCIA ([facility] [place] [place]) [address] [place] [address] Chris GARCIA ([facility]co [facility] [place] OUTPATIENT [id number] rip hip pain/re fill meds [phone] ANA WATKINS 05/11 Released w/o Limitations [address] [place] [address] Chris GARCIA ([facility])([facility]) [facility] Outpatient Encounter [id number] ALEMANBILLIE Almeida 09/26 [facility] OFFICE O/P EST HI 40 MIN [id number] Diagnos is: ICD-10- CM Z77.29 Contact with and exposur e to other hazardo us substan kimberly GERALDINE ROBLEDO IDIMMA N 09/29 [facility] Outpatient Encounter [id number] 09/30 [facility] IMG RTA DETCJ/MNTR DS STAFF [id number] Diagnos is: ICD-10- CM Z13.5 Encount er for screeni ng for eye and ear disorde SA RONA Mitchell 09/30 [facility] OFFICE O/P EST MOD 30 MIN [id number] Diagnos is: ICD-10- CM I25.10 Athscl heart disease of platinum coronar y artery w/o ang DINORAH Goldsmith 09/30 [facility] Outpatient Encounter [id number] Diagnos is: ICD-10- CM Z13.5 Encount er for screeni ng for eye and ear disorde rs BENIGNOVETTA,M RINA DMITRY 09/30 [facility] OFF/OP EST DECEMBER X REQ PHY/QHP [id number] Diagnos is: ICD-10- CM Z23 Encount er for immuniz BILLIE Mead LIBIA Almeida 12/02 [facility] Social History Combined list of available smoking, tobacco, and other social history from Department of Defense and Veterans Affairs facilities. Social History Type Response Date Comment [facility] e Tobacco smoking status PAIS WA-TOBACCO NEVER USED CIGARETTES 09/30/2024 [facility] History of tobacco use WA-TOBACCO NEVER USED OTHER TYPE 09/30/2024 [facility] History of tobacco use WA-TOBACCO NEVER USED 09/26/2023 [facility] This section is an empty social history section. DoD
--- OUTSIDE RECORDS SUMMARY | 2025-03-14 07:12 | XMS_ITS | Clinical Summary ---
Author Organization [facility] [address] Address [address] [place] [address] Care Team Providers Care Refractory Tile Helper Name Role Phone Trevor Quezada MD Primary Care Provider [phone] Allergies Active Allergy Reactions Criticality Noted Date [...] (CRESTOR) 40 mg tabletIndications:Co ronary arteriosclerosis in nikolai artery,Hypercholeste rolemia,History of coronary artery bypass surgery [...] atorvastatin 40 mg daily Coronary arteriosclerosis in nikolai artery 12/20 Overview (11/21/2016): CAD in nikolai artery Assessment & Plan (04/28/2017 5:09 PM [...] on file 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
--- OUTSIDE RECORDS SUMMARY | 2025-03-14 07:12 | XMS_ITS | Referral Summary ---
Author Organization 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
== END 2025-03-14 07:00 | disposition home or self-care (01) ==
LOC: ANHIMG 07:08
PROVIDERS: PCP Internal Medicine; Visit Provider Internal Medicine
DX: M47.892 Other spondylosis, cervical region (principal)
CPT/HCPCS: 72050

== ENCOUNTER 2025-04-26 10:17 | Outpatient (CLI) | payer MEDICARE, OTHER, SELFPAY ==
--- OUTSIDE RECORDS SUMMARY | 2022-11-05 10:42 | XMS_ITS | Continuity of Care Document ---
Author Organization [facility] Address [address] [place] [address] Phone Care Team Providers Care It Security Consultant Name Role Phone Yousif Herrera MD Unavailable Unavailable Allergies, Adverse Reactions, Alerts Substance Reaction Status Criticality azithromycin Active No Information Medications Medication Instructions Dosage Effective Dates (start - stop) Status Comments Eliquis 5 mg tablet take 1 tablet by ora l route 2 times every day 5 MG - Active metoprolol tartrate 25 mg tablet take 0.5 tablet by oral route every day 12.5 MG - Active Lipitor 40 mg tablet take 1 tablet by or al route every day 40 MG - Active Procedures Procedure Date PPPS, initial visit OFFICE/OUTPATIENT VISIT, EST OFFICE/OUTPATIENT VISIT, EST OFFICE/OUTPATIENT VISIT, EST OFFICE/OUTPATIENT VISIT, EST OFFICE/OUTPATIENT VISIT, EST OFFICE/OUTPATIENT VISIT, EST OFFICE/OUTPATIENT VISIT, EST OFFICE/OUTPATIENT VISIT, EST Advance Directives Directive Yes / No Effective Date File Name No Information Encounters Encounter Description Practice Location Reason(s) For Visit Diagnoses Date Provider Providers Copied on Encounter [facility], [address] [place] [address], [id number], tel:[phone] [facility] No Information 3 Javier Dodd. [address], [place], [id number] , [place]. tel:[phone] Referring Provider: Yousif Herrera, [address] [place] [address] [place], [place], [id number]. tel:[phone] OFFICE/OUTPA TIENT VISIT, [facility], [address], [place], [place], [id number], [place] tel:[phone] [facility] back surgery1 (chief complaint) Lumbago with sciatica, left sideDVT of left legArteriosclerosis of [place] coronary artery without angina pectorisHyperlipide miaAbnormal weight lossEncounter for general adult medical exam w abnormal findings 0 Javier Dodd. [address], [address], [place], [place], [id number] , [place]. tel: [phone] Referring Provider: Juliocesar [address], [place], [place], [address]. tel:[phone] OFFICE/OUTPA TIENT VISIT, [facility], [address], [place], [place], [id number], [place] tel:[phone] [facility] bloating (chief complaint) Chest Pain, UnspecifiedAbdomina l Pain Sep-2 3-201 5 Javier Dodd. [address], [address], [place], [place], [address] , [place]. [phone] Referring Provider: Juliocesar [address], [place], [place], [address]. tel:[phone] OFFICE/OUTPA TIENT VISIT, [facility], [address], [place], [place], [address], [place] tel:[phone] [facility] abdominal pain (chief complaint) HLP (chief complaint) hernia (chief complaint) Other and unspecified hyperlipidemiaAbdom inal PainHernia of unspecified site without mention of obstruction or gangrene 0 2-201 5 Javier Dodd. [address], [address], [place], [place], [address] , [place]. [phone] Referring Provider: Juliocesar [address], [place], [place], [address]. tel:[phone] OFFICE/OUTPA TIENT VISIT, [facility], [address], [place], [place], [address], [place] tel:[phone] [facility] abdominal pain (chief complaint) Abdominal PainMalignant Neoplasm, ProstateHEMATURIA NOS [place] 5 Javier Dodd. [address], [address], [place], [place], [address] , [place]. tel:[phone] Referring Provider: Yousif Herrera, [address], [place], [place], [address]. tel:[phone] OFFICE/OUTPA TIENT VISIT, [facility], [address], [place], [place], [address], [place] tel:[phone] [facility] sick (chief complaint) leg itching (chief complaint) Dietary surveillance and counselingAcute upper respiratory infections of other multiple sitesUnspecified pruritic disorder 3 Javier Dodd. [address], [address], [place], [place], [address] , [place]. tel:[phone] Referring Provider: Yousif Herrera, [address], [place], [place], [id number]. tel:[phone] OFFICE/OUTPA TIENT VISIT, [facility], [address], [place], [place], [address], [place] tel:[phone] [facility] cough (chief complaint) Dietary surveillance and counselingBronchiti s, Acute 3 Javier Dodd. [address], [address], [place], [place], [address] , [place]. tel:[phone] Referring Provider: Yousif Herrera, [address], [place], [place], [address]. tel:[phone] OFFICE/OUTPA TIENT VISIT, [facility], [address], [place], [place], [address], [place] tel:[phone] [facility] prostate CA (chief complaint) hematuria (chief complaint) polyruia (chief complaint) Dietary surveillance and counselingHEMATURIA NOSUrinary frequencyMalignant Neoplasm, Prostate 3 Javier Dodd. [address], [facility] [address], [place], [place], [address] , [place]. tel:[phone] Referring Provider: Yousif Herrera [address], [place], [place], [address]. tel:[phone] OFFICE/OUTPA TIENT VISIT, EST [facility], [address], [place], [address], [place] tel:[phone] [facility] Sinus (chief complaint) Dietary surveillance and counselingAcute maxillary sinusitis 3 Javier Dodd. [address], [facility] [address], [place], [place], [address] , [place]. tel:[phone] Referring Provider: Yousif Herrera [address] [facility] [address], [place], [place], [address]. tel:[phone] Family History Family Member Type Diagnosis Age At Onset Brother Problem (finding) Hypertension Mother Problem (finding) CHF Brother Problem (finding) Coronary artery disease Payers Payer name Insurance type Covered libertarian ID Authoriza tion(s) No Information Social History Type Description Quantity Date Captured Comments Alcohol Use Details Unknown Caffeine Use Details Unknown Tobacco Use Status No Information Smoking Status No Information Sex Male Chief Complaint And Reason For Visit No Information Plan Of Treatment Date Type Action Status Referral Ordered: Physical Therapy (related to Lumbago with sciatica, left side) ordered Referral Ordered: US VENOUS DOPPLER ordered Referral Referred To: Physical Therapy Ordered: Referrals: Physical Therapy. Evaluate and treat ordered Referral Ordered: CARDIOVASCULAR STRESS TEST ordered Referral Ordered: Referral: Genrl Surg. ordered Referral Ordered: UPPER GI W/ KUB ordered Referral Ordered: CT ABDOMEN W/O DYE ordered History Of Present Illness Encounter Date Complaint History Of Prese nt Illness back surgery1 Pt needs annual physical. Pt underwent back surgery two months ago for laminectomy. Pt has been having low back pain with left sciatica, which improved post surgery. Pt notices mild left leg numbness and tingling. Pt developed left leg DVT 3-4 days post op at home . Pt had d left calf pain and some redness and swelling and he had left DVT. Pt did not have PE. Pt is on eliquis now. Pt also has CAD s/p CABG. Pt denies any chest pain .Pt takes lipitor and metoprolol. His bp is ok at home. Pt lost 30 pounds during last 6 months ,Pt states that he has not been eating well due to his back pain and surgery, etc .He denies any abd pain, early satiety, nausea, vomiting, diarrhea, blood in stool, etc .Pt states that his appetite finally returned now. Instructions Date Instruction Additional Infor bea Decrease caloric intake Related to Dietary surveillance counseling Dietary counseling Related to Di etary surveillance counseling Decrease caloric intake Related to Dietary surveillance counseling Dietary counseling Related to Di etary surveillance counseling Decrease caloric intake Related to Dietary surveillance counseling Dietary counseling Related to Di etary surveillance counseling Dietary counseling Related to Di etary surveillance counseling Decrease caloric intake Related to Dietary surveillance counseling Assessments Type Assessment Date No Information
--- OUTSIDE RECORDS SUMMARY | 2022-11-05 10:42 | XMS_ITS | Continuity of Care Document ---
Author Organization [facility] Address [address] [place] [address] Phone Care Team Providers Care Gun Stock Maker Name Role Phone Yousif Herrera MD Unavailable Unavailable Allergies, Adverse Reactions, Alerts Substance Reaction Status Criticality azithromycin Active No Information Medications Medication Instructions Dosage Effective Dates (start - stop) Status Comments Lipitor 40 mg tablet take 1 tablet by or al route every day 40 MG - Active metoprolol tartrate 25 mg tablet take 0.5 tablet by oral route every day 12.5 MG - Active Eliquis 5 mg tablet take 1 tablet by ora l route 2 times every day 5 MG - Active Procedures Procedure Date PPPS, [...] Copied on Encounter [facility], [address] [place] [address], [id number], [place] tel:[phone] [facility] No Information 3 Javier Dodd. [address] [place], [place], [address] , [place]. tel:[phone] Referring Provider: Yousif Herrera, [address] [place] [address] [place], [place], [id number]. tel:[phone] OFFICE/OUTPA TIENT VISIT, [facility], [place], [facility], [address], [place], [place], [address], [place] tel:[phone] [facility] back surgery1 (chief complaint) Lumbago with sciatica, left sideDVT of left legArteriosclerosis of [place] coronary artery without angina pectorisHyperlipide miaAbnormal weight lossEncounter for general adult medical exam w abnormal findings 0 Javier Dodd. [address], [address], [place], [place], [address] , [place]. [phone] Referring Provider: Juliocesar [address], [place], [place], [address]. tel:[phone] OFFICE/OUTPA TIENT VISIT, [facility], [place], operated [facility], [address], [place], [place], [address], [place] tel:[phone] [facility] bloating (chief complaint) Chest Pain, UnspecifiedAbdomina l Pain Sep-2 3-201 5 Javier Dodd. [address], [address], [place], [place], [address] , [place]. [phone] Referring Provider: [address], [place], [place], [address]. tel:[phone] OFFICE/OUTPA TIENT VISIT, [facility], [place], [facility], [address], [place], [place], [address], [place] tel:[phone] [facility] abdominal pain (chief complaint) HLP (chief complaint) hernia (chief complaint) Other and unspecified hyperlipidemiaAbdom inal PainHernia of unspecified site without mention of obstruction or gangrene 0 2-201 5 Javier Dodd. [address], [address], [place], [place], [address] , [place]. [phone] Referring Provider: Julioc[address], [place], [place], [address]. tel:[phone] OFFICE/OUTPA TIENT VISIT, [facility], [place], [facility], [address], [place], [place], [address], [place] tel:[phone] [facility] abdominal pain (chief complaint) Abdominal PainMalignant Neoplasm, ProstateHEMATURIA NOS [place] [address] Javier Dodd. [address], [address], [place], [place], [address] , [place]. tel:[phone] Referring Provider: Yousif Herrera, [address], [place], [place], [address]. tel:[phone] OFFICE/OUTPA TIENT VISIT, [facility], [place], [facility], [address], [place], [place], [address], [place] tel:[phone] [facility] sick (chief complaint) leg itching (chief complaint) Dietary surveillance and counselingAcute upper respiratory infections of other multiple sitesUnspecified pruritic disorder 3 Javier Dodd. [address], [address], [place], [place], [address] , [place]. tel:[phone] Referring Provider: Yousif Herrera, [address], [place], [place], [address]. tel:[phone] OFFICE/OUTPA TIENT VISIT, [facility], [place], [facility], [address], [place], [place], [address], [place] tel:[phone] [facility] cough (chief complaint) Dietary surveillance and counselingBronchiti s, Acute 3 Javier Dodd. [address], [place], [place], [address] , [place]. tel:[phone] Referring Provider: Yousif Herrera, [address], [place], [place], [address]. tel:[phone] OFFICE/OUTPA TIENT VISIT, [facility], [place], [facility], [address], [place], [place], [address], [place] tel:[phone] [facility] prostate CA (chief complaint) hematuria (chief complaint) polyruia (chief complaint) Dietary surveillance and counselingHEMATURIA NOSUrinary frequencyMalignant Neoplasm, Prostate 3 Javier Dodd. [address], [facility] A, [place], [place], [address] , [place]. tel:[phone] Referring Provider: Yousif Herrera [address], [place], [place], [address]. tel:[phone] OFFICE/OUTPA TIENT VISIT, EST [facility], [address], [place], [place], [address], [place] tel:[phone] [facility] Sinus (chief complaint) Dietary surveillance and counselingAcute maxillary sinusitis 3 Javier Dodd. [address], [facility] A, [place], [place], [address] , [place]. tel:[phone] Referring Provider: Yousif Herrera Jul[address]oc[address] [facility] A, [place], [place], [address]. tel:[phone] Family History Family Member Type Diagnosis Age At Onset Brother Problem (finding) Hypertension Mother Problem (finding) CHF Brother Problem (finding) Coronary artery disease Payers Payer name Insurance type Covered republican ID Authoriza tion(s) No Information Social History [...] counseling Related to Di etary surveillance counseling Assessments Type Assessment Date No Information
--- OUTSIDE RECORDS SUMMARY | 2023-12-26 08:15 | XMS_ITS ---
Author Organization [facility] Address [address] [place] [address] Care Team Providers Care Histological Illustrator Name Role Phone CLAUDINE JONES Unavailable [phone] REASON FOR VISIT qtc Encounters Encounter Location Date Provider Diagnosis [facility] [address] [place] [address] 12/26/2023 CLAUDINE JONES Plan Of Treatment No Information Progress Notes * ALLIE JordanDOB: 2 (84 yo M)Acc No.[id number]:12/26/2023 Patient: Jordan MCNAMARA Provider: Saad Jones MD :1940 A ge:83 Y S ex:Male Date:12/26/2023 [facility] Subjective: * Chief Complaints: * 1 . Qtc. * Medical History: Objective: * Vitals: Assessment: Plan: * Treatment: * * Electronic signature of MAYO JONES MD on 04/26/2025 at 11:55 AM CDT Sign off status: Pending * Provider: Saad Jones MD Date: 0 12/26/2023 Generated for Otoniel nash/Ben/Brooklynsmitting on: 0 04/26/2025 11:55 AM CDT
--- OUTSIDE RECORDS SUMMARY | 2023-12-26 08:15 | XMS_ITS ---
Author Organization [facility] Address [address] [place] [address] Care Team Providers Care Director Behavioral Health Name Role Phone CLAUDINE JONES Unavailable [phone] REASON FOR VISIT qtc Encounters Encounter Location Date Provider Diagnosis [facility] [address] [place] [address] 12/26/2023 CLAUDINE JONES Plan Of Treatment No Information Progress Notes * ALLIE TajnilaDOB: 2 (84 yo M)Acc No.[id number]:12/26/2023 Patient: Jordan MCNAMARA Provider: Saad Jones MD :1940 A ge:83 Y S ex:Male Date:12/26/2023 [facility] [facility] Subjective: * Chief Complaints: * 1 . Qtc. * Medical History: Objective: * Vitals: Assessment: Plan: * Treatment: * * Electronic signature of MAYO JONES MD on 04/25/2025 at 06:45 AM CDT Sign off status: Pending * Provider: Saad Jones MD Date: 0 12/26/2023 Generated for Otoniel nash/Ben/Brooklynsmitting on: 0 04/25/2025 06:45 AM CDT
--- OUTSIDE RECORDS SUMMARY | 2025-04-25 06:46 | XMS_ITS | Clinical Summary ---
Author Organization [facility] Address [address] [place] [address] Care Team Providers Care Research Archaeologist Name Role Phone Unavailable Primary Care Provider [...] COVID-19 Vaccine ( - 2023-2 5 season) 2025 Meningococcal B Vaccine Aged Out No l onger eligible based on patient's age to complete this topic Meningococcal Vaccine Aged Out No raheem pauline eligible based on patient's age to complete this topic RSV Immunizations Under 20 Months Aged Out No longer eligible based on patient's age to complete this topic
--- OUTSIDE RECORDS SUMMARY | 2025-04-25 06:46 | XMS_ITS | Clinical Summary ---
Author Organization [facility] [address] Address [address] [place] [address] Care Team Providers Care Blade Operator Name Role Phone Trevor Quezada MD Primary Care Provider [phone] Allergies Active Allergy Reactions Criticality Noted Date [...] (CRESTOR) 40 mg tabletIndications:Co ronary arteriosclerosis in upper [place] artery,Hypercholeste rolemia,History of coronary artery bypass surgery [...] atorvastatin 40 mg daily Coronary arteriosclerosis in upper [place] artery 12/20 Overview (11/21/2016): CAD in upper [place] artery Assessment & Plan (04/28/2017 5:09 PM [...] on file 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
--- OUTSIDE RECORDS SUMMARY | 2025-04-25 06:46 | XMS_ITS | Patient Health Record ---
Author Organization [facility] Address [address] [place] [address] Reason For Referral No Information Plan Of Treatment No Information
--- NOTE | ~2025-04-26 | MR_ITS ---
EXAMINATION: MRA neck wo/w con DATE: 04/26/2025 11:44 INDICATION: Dizziness. TECHNIQUE: Magnetic resonance angiography (MRA) of the neck was performed without and with 14 ms MultiHance intravenous contrast. Sequences included axial 2D-time of flight T1-weighted FSPGR, axial Inhance, and coronal T1-weighted FSPGR without and with intravenous contrast. COMPARISON: CTA 10/29/2021 FINDINGS: Right vertebral artery is dominant. There is no significant stenosis of the vertebral arteries. There is 0% stenosis of the proximal right internal carotid artery relative to normal distal artery lumen diameter (NASCET criteria). There is 0% stenosis of the proximal left internal carotid artery relative to normal distal artery lumen diameter. IMPRESSION: 1. 0% stenosis of the proximal internal carotid arteries relative to normal distal artery lumen diameters (NASCET criteria). Reviewed, dictated and finalized at location E. IMPRESSION: 1. 0% stenosis of the proximal internal carotid arteries relative to normal dis josselyn artery lumen diameters (NASCET criteria).
--- OUTSIDE RECORDS SUMMARY | 2025-04-26 11:55 | XMS_ITS | Patient Health Record ---
Author Organization [facility] Address [address] [place] [address] Reason For Referral No Information Plan Of Treatment No Information
--- OUTSIDE RECORDS SUMMARY | 2025-04-26 11:55 | XMS_ITS | Clinical Summary ---
Author Organization [facility] Address [address] [place] [address] Care Team Providers Care Priming Mixture Carrier Name Role Phone Unavailable Primary Care Provider [...]
--- OUTSIDE RECORDS SUMMARY | 2025-04-26 11:55 | XMS_ITS | Clinical Summary ---
Author Organization [facility] [address] Address [address] [place] [address] Care Team Providers Care Belt And Link Assembly Supervisor Name Role Phone Trevor Quezada MD Primary Care Provider [phone] Allergies Active Allergy Reactions Criticality Noted Date [...] (CRESTOR) 40 mg tabletIndications:Co ronary arteriosclerosis in [place] artery,Hypercholeste rolemia,History of coronary artery bypass surgery [...] atorvastatin 40 mg daily Coronary arteriosclerosis in [place] artery 12/20 Overview (11/21/2016): CAD in [place] artery Assessment & Plan (04/28/2017 5:09 PM [...] on file 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
== END 2025-04-26 10:18 | disposition home or self-care (01) ==
PROVIDERS: PCP Internal Medicine; Visit Provider Internal Medicine
DX: R42 Dizziness and giddiness (principal); M48.02 Spinal stenosis, cervical region
CPT/HCPCS: 70549; A9577